=== PATIENT | female | born 1995 | race Caucasian/White ===

== ENCOUNTER → 2019-03-08 15:49 | Outpatient (BNVA) | payer BC, SELFPAY | PROVIDERS: Family Provider Family Medicine; PCP Family Medicine; Visit Provider Nurse Practitioner Psychiatric/Mental Health | DX: F33.1 Major depressive disorder, recurrent, moderate (principal); F41.9 Anxiety disorder, unspecified | CPT/HCPCS: 99214; 99215 ==

== ENCOUNTER → 2019-05-31 07:41 | Outpatient (BNVA) | payer BC, SELFPAY | PROVIDERS: Family Provider Family Medicine; PCP Family Medicine; Visit Provider Nurse Practitioner Psychiatric/Mental Health | DX: F33.1 Major depressive disorder, recurrent, moderate (principal); F41.9 Anxiety disorder, unspecified; M79.7 Fibromyalgia; G89.29 Other chronic pain | CPT/HCPCS: 99212 ==

== ENCOUNTER → 2019-08-20 07:34 | Outpatient (BNVA) | payer BC, SELFPAY | PROVIDERS: Family Provider Family Medicine; PCP Family Medicine; Visit Provider Nurse Practitioner Psychiatric/Mental Health | DX: G89.29 Other chronic pain (principal); M79.7 Fibromyalgia; F33.1 Major depressive disorder, recurrent, moderate; F41.9 Anxiety disorder, unspecified | CPT/HCPCS: 99212 ==

== ENCOUNTER → 2019-11-12 09:36 | Outpatient (BNVA) | payer BC, SELFPAY | PROVIDERS: Family Provider Family Medicine; PCP Family Medicine; Visit Provider Nurse Practitioner Psychiatric/Mental Health | DX: F33.1 Major depressive disorder, recurrent, moderate (principal); F41.9 Anxiety disorder, unspecified; G89.29 Other chronic pain; M79.7 Fibromyalgia | CPT/HCPCS: 99212 ==

== ENCOUNTER → 2019-12-24 07:45 | Outpatient (BNVA) | payer BC, SELFPAY | PROVIDERS: Family Provider Family Medicine; PCP Family Medicine; Visit Provider Nurse Practitioner Psychiatric/Mental Health | DX: F33.1 Major depressive disorder, recurrent, moderate (principal); F41.9 Anxiety disorder, unspecified; M79.7 Fibromyalgia; G89.29 Other chronic pain | CPT/HCPCS: G0463 ==

== ENCOUNTER → 2020-03-24 10:03 | Outpatient (BNVA) | payer BC, SELFPAY | PROVIDERS: Family Provider Family Medicine; PCP Family Medicine; Visit Provider Nurse Practitioner Psychiatric/Mental Health | DX: F33.1 Major depressive disorder, recurrent, moderate (principal); F41.9 Anxiety disorder, unspecified; M79.7 Fibromyalgia; G89.29 Other chronic pain | CPT/HCPCS: 99213 ==

== ENCOUNTER → 2020-06-16 08:13 | Outpatient (BNVA) | payer BC, SELFPAY | PROVIDERS: Family Provider Family Medicine; PCP Family Medicine; Visit Provider Nurse Practitioner Psychiatric/Mental Health | DX: F33.1 Major depressive disorder, recurrent, moderate (principal); F41.9 Anxiety disorder, unspecified; M79.7 Fibromyalgia; G89.29 Other chronic pain | CPT/HCPCS: 99213 ==

== ENCOUNTER 2020-06-18 10:06 | Outpatient (CLI) | payer BC, SELFPAY ==
[2020-06-18] MEDS: iohexol 300 mg/mL 50 mL Btl PO (10:21)
[2020-06-18] MEDS: iohexol 300 mg/mL 100 mL Btl IV (11:29)
--- NOTE | 2020-06-18 11:30 | CT_ITS ---
WS: [id number] CT ABDOMEN AND PELVIS WITH CONTRAST HISTORY: R10.9 - Unspecified abdominal pain TECHNIQUE: Imaging performed of the abdomen and pelvis with IV contrast. Single phase imaging of the abdomen. Coronal and sagittal reformats are submitted. All CT scans at [facility] use at least one of these dose optimization techniques: automated exposure control; mA and/or kV adjustment per patient size (includes targeted exams where dose is matched to clinical indication); or iterativ e reconstruction. IV CONTRAST: Omnipaque 300; 95 mL IV. Oral contrast: Yes. DLP: 1224.16 mGycm COMPARISON: None available. Lower thorax: Lung bases are clear. Heart is normal size. No hiatal hernia. Liver/biliary system: Normal size with no intrahepatic dilatation. Gallbladder: Status post cholecystectomy. No bile duct dilatation. Pancreas: Normal. Spleen: Normal. Adrenal glands: Normal. Right kidney: Normal. Left kidney: Normal. Aorta: Normal. Lymphadenopathy: None. Free fluid: None. GI tract: Normal appendix. No GI tract obstruction. There is mild diffuse constipation greatest in th e RIGHT and transverse colon. No diverticular disease. No mucosal thickening or edema. No small bowel dilatation. Abdominal wall: Fat containing umbilical hernia. Pelvis: Normal size uterus. Small follicle in the RIGHT ovary measures 2.3 cm. No free fluid or adeno matteo. Bones: Unremarkable. CT/CT abdomen pelvis w con* [id number] IMPRESSION: 1. No acute abdominal or pelvic abnormalities. 2. Prior cholecystectomy. 3. Normal appendix. 4. Mild diffuse constipation. 5. Small fat-containing umbilical hernia.
== END 2020-06-18 10:07 | disposition home or self-care (01) ==
PROVIDERS: PCP Family Medicine; Visit Provider Surgery
DX: R10.9 Unspecified abdominal pain (principal); Z90.49 Acquired absence of other specified parts of digestive tract; K59.00 Constipation, unspecified; K42.9 Umbilical hernia without obstruction or gangrene
CPT/HCPCS: 74177; Q9967

== ENCOUNTER → 2020-07-11 15:07 | Outpatient (BNVA) | payer BC, SELFPAY | PROVIDERS: PCP Family Medicine; Visit Provider Surgery | DX: Z01.812 Encounter for preprocedural laboratory examination (principal); Z20.822 Contact with and (suspected) exposure to COVID-19 | CPT/HCPCS: 87635 ==

== ENCOUNTER 2020-07-16 07:17 | Day surgery (SDC) | payer BC, SELFPAY ==
[2020-07-14 13:50] VITALS: BMI 36.5
--- NOTE | 2020-07-16 07:51 | ANES.PREANE2 ---
Pre-Anesthetic Assessment Pre-Anesthetic Assessment: Height/Weight: Height 1.73 m Weight 108.862 kg Preop Diagnosis: Bleeding per rectum Proposed Procedure: Operation Date: 07/16/20 08:15 Proposed Procedures p EGD [id number] r10.9 k62.5(Not Applicable) - Valdez English MD s Colonoscopy(Not Applicable) - Valdez English MD Was Beta Lisa taken within 24 hours: N/A Was Clonidine taken within 24 hours: N/A Social: Social History: No alcohol and No tobacco Exam: Pre-Anes Outpt Exam: alert, oriented x 3, clear to auscultation bilaterally and regular rate & rhythm Airway: Submandibular: WNL Cervical ROM: WNL MP: 1 History/ROS: No significant history except as noted Pulmonary: Pulmonary: None reported CV/HEM: CV/HEM: None reported : : None reported Hepatic: Hepatic: None reported GI: GI: GERD and Hiatus hernia Metabolic: Metabolic: None reported Musc/skel: Musc/skel: Fibromyalgia Neuropsych: Neuropsych: Anxiety and Depression Comments: migraine Anesthetic Plan: ASA status: 2 Anesthesia: Anesthesia Evaluation and MAC Risk of > 500 ml blood loss (7ml/kg in children): No PFSH Anesthesia PFSH: Medical History Chronic pain Fibromyalgia Family History Mother CAD (coronary artery disease) Hypertension Other Cancer Diabetes Denies family history of Stroke Social History Smoking and tobacco status: never smoked Alcohol intake: never Lives independently: Yes Household members: spouse Female Reproductive History: Date of last menstrual period: 05/17/20 Data Anesthesia Cardiac Studies: No Data to Display
[2020-07-16 07:55] VITALS: BP 118/76; PULSE 80; RESP 18; TEMP 36.1; O2SAT 95
[2020-07-16] MEDS: sodium chloride 0.9% 1,000 ML 30 ML IV (08:08)
--- NOTE | 2020-07-16 08:27 | P.HP_ITS ---
Same Day Surgery H&P Indication for Procedure/HPI DATE OF PROCEDURE: July 16, 2020 CHIEF COMPLAINT/INDICATIONFOR SURGICAL PROCEDURE: Bleeding per rectum PREOP DIAGNOSIS: Bleeding per rectum PLANNED PROCEDRUE: Operation Date: 07/16/20 08:15 Proposed Procedures p EGD [id number] r10.9 k62.5(Not Applicable) - Valdez English MD s Colonoscopy(Not Applicable) - Valdez English MD History of present illness: This is a pleasant 24 years old female patient presents to my office with history of abdominal pain mostly sharp has been in the center of her abdomen and describes it as well in the form of stabbing. Nothing seems to make it better or worse. Patient reports that she has been having blood in stool for the past couple of weeks and she denies history of colon cancer or inflammatory bowel disease. Patient undergone diagnostic EGD by me back in 2016 and was found to have gastritis and hiatal hernia. Interim history 07/16/2020 Patient comes today for diagnostic EGD and colonoscopy. ROS All systems have been reviewed negative except as per the above or per problem l ist. Medications/Allergies* Home Medications Medication Instructions Recorded Confirmed Type gabapentin 300 mg capsule 300 mg PO TID 08/17/19 07/16/20 History tizanidine 2 mg capsule 2 mg PO TID PRN 08/17/19 07/16/20 History omeprazole 40 mg capsule,delayed 40 mg PO DAILY 06/12/20 07/16/20 History release naproxen 500 mg PO BID 07/14/20 07/14/20 History Allergies/Adverse Reactions Allergy/AdvReac Type Severity Reaction Status Date / Time No Known Allergies Allergy Verified 07/14/20 13:47 Current Medications: Generic Name Dose Route Start Last Admin Trade Name Freq PRN Reason Stop Dose Admin Sodium Chloride 1,000 mls @ 30 mls/hr 07/16/20 07:45 07/16/20 08:08 Sodium Chloride 0.9% IV 07/17/20 07:44 30 mls/hr .Q24H CLAUDY Administration Pertinent History/Comorbid Conditions* Medical History (Updated 06/09/20 @ 15:52 by Valdez English MD) Chronic pain Fibromyalgia Family History (Updated 06/09/20 @ 15:01 by Serina Falcon) Diabetes CAD (coronary artery disease) Mother Cancer Hypertension Mother Denies family history of Stroke Social History Smoking and tobacco status: never smoked Alcohol intake: never Lives independently: Yes Household members: spouse Pertinent Exam Findings alert, oriented x 3, clear to auscultation bilaterally, regular rate & rhythm and procedure specific exam findings (Abdominal examination nontender nondistended soft.) CT scan of the abdomen pelvis 1. No acute abdominal or pelvic abnormalities. 2. Prior cholecystectomy. 3. Normal appendix. 4. Mild diffuse constipation. 5. Small fat-containing umbilical hernia. Recommendations Surgery/Procedure today (Diagnostic EGD and colonoscopy) Other Plans: Plan of care; After thorough history and physical examination and reviewing the chart and images of the CT scan of the abdomen pelvis with my presented potation, plan to perform a diagnostic esophagogastroduodenoscopy and diagnostic colonoscopy with possible biopsy and possible polypectomy. I discussed with the patient in detail the risks,benefits,alternatives and indications.The risk of aspiration, bleeding, soft tissue injury, perforation of the stomach/esophagus/colon and other potential concomitant complications were explained to the patient in details also the potential need for Thoracotomy and or Laproscoy/Laparotomy to repair any related complications including but not limited to colectomy and or Closotomy. The patient understood this well and did agree to proceed. Rationale was carefully and clearly discussed with the patient.Appropriate informed consent have been reviewed and signed Verbal and written Instructions were given to the patient for colonoscopy prep Coding Level of Care Code Acute Low Emission Automobile Designer for Jad Dahl
[2020-07-16 08:59] VITALS: BP 110/68; PULSE 72; RESP 18; TEMP 36.1; O2SAT 93
[2020-07-16 09:10] VITALS: BP 111/64; PULSE 71; RESP 18; O2SAT 96
[2020-07-16 09:36] LABS: OR HCG Qualitative Urine Negative (Negative)
--- NOTE | 2020-07-16 13:29 | ANE.PACU2 ---
Inpatient post-anesthesia follow up: Airway intact: Yes Vital signs: Temperature 97 F Pulse Rate 71 Respiratory Rate 18 Blood Pressure 111/64 Pulse Oximetry 96 Oxygen Delivery Me thod Room Air Oxygen Flow Rate Fraction of Inspir ed Oxygen Hydration adequate: Yes Nausea and vomiting: No Pain level: 1 Mental status: Baseline
[2020-07-17 06:19] LABS: H. Pylori / CLO Test Negative
== END 2020-07-16 09:19 | disposition home or self-care (01) ==
PROVIDERS: PCP Family Medicine; Visit Provider Surgery
PROC: 0DJ08ZZ Inspection of Upper Intestinal Tract, Via Natural or Artificial Opening Endoscopic (ICD-10-PCS; CPT 43235; principal; 2020-07-16 08:15)
PROC: 0DJD8ZZ Inspection of Lower Intestinal Tract, Via Natural or Artificial Opening Endoscopic (ICD-10-PCS; CPT 45378; 2020-07-16 08:15)
DX: K62.5 Hemorrhage of anus and rectum (principal); K21.9 Gastro-esophageal reflux disease without esophagitis; K29.70 Gastritis, unspecified, without bleeding; G89.29 Other chronic pain; M79.7 Fibromyalgia; Z82.49 Family history of ischemic heart disease and other diseases of the circulatory system
CPT/HCPCS: 43239; 45378; 81025; 84703; 87077; 96360; J2704; J7030

== ENCOUNTER 2021-03-10 13:32 | Emergency (ER) | payer BC, SELFPAY ==
[2021-03-10 13:47] VITALS: BP 150/95; PULSE 74; RESP 15; TEMP 36.7; O2SAT 96; BMI 36.5
--- NOTE | 2021-03-10 15:02 | XRR_ITS ---
PROCEDURE INFORMATION: Exam: XR Abdomen Exam date and time: 03/10/2021 3:02 PM Age: 25 years old Clinical indication: Abdominal pain; Localized; Right; Prior surgery; Surgery type: Gb; Additional info: Right sided abd pain TECHNIQUE: Imaging protocol: XR of the abdomen. Views: Frontal supine view of the abdomen. 1 View. COMPARISON: CT abdomen pelvis w con* [id number] 06/18/2020 11:27 AM FINDINGS: Gastrointestinal tract: Moderate constipation without bowel dilation to indicate obstruction. Bones/joints: Unremarkable. XR/XR KUB portable [id number] IMPRESSION: Moderate constipation without bowel dilation to indicate obstruction.
--- NOTE | 2021-03-10 15:03 | W.ED.ABDPA2 ---
Documented by User: ARASH Vizcarra 03/11/21 07:10 HPI - Abdominal Pain General: Chief Complaint: Abdominal Pain Stated Complaint: R ABD PAIN, NAUSEA Time Seen by Provider: 03/10/21 14:59 History of Present Illness: HPI narrative: Patient complains about abdominal pain right side across the middle. Is gone on for 2 weeks and hurt every day. Patient said her bowels are working good. Patient denies any nausea or vomiting diarrhea or dysuria. Has had gallbladder out. Denies any other health problems. MD elicited complaint: abdominal pain Onset (ago): week(s) Pain Consistency: constant Location: RUQ and RLQ Severity: mild Quality: fullness Exacerbating factors: nothing Relieving factors: nothing Associated Symptoms: Reports no associated symptoms; Denies chills, fever(s), nausea and vomiting Related Data: Date of Last Menstrual Period: 03/02/21 Review of Systems Const: Denies: fever(s), chills or body aches Eyes: Denies: change in vision or blurry vision ENMT: Denies: throat pain or nasal congestion Card: Denies: chest pain or dyspnea on exertion Resp: Denies: dyspnea, productive cough or non-productive cough GI: Reports: abdominal pain; Denies: nausea or vomiting Musc: Denies: extremity pain Skin/Breast: Denies: rash Neuro: Denies: headache(s) Psych: Denies: anxiety or depression Caleb/Lymph: Denies: easy bruising PFS ED PFSH: Medical History (Updated 03/10/21 @ 15:46 by ARASH Vizcarra) Bleeding per rectum Chronic pain Fibromyalgia Gastritis GERD (gastroesophageal reflux disease) Psychiatric care Family History Mother CAD (coronary artery disease) Hypertension Other Cancer Diabetes Denies family history of Stroke Social History Smoking and tobacco status: never smoked Alcohol intake: never Lives independently: Yes Household members: spouse Female Reproductive History: Date of last menstrual period: 03/02/21 Physical Exam Const: COMMON NORMALS: no acute distress, average body habitus and patient oriented x3 HENMT: COMMON NORMALS: normocephalic HEAD & SCALP: normal to inspection and normocephalic FACE & SINUS: normal facial exam Eye: COMMON NORMALS: conjunctivae normal GENERAL EYE: appearance normal, both eyes and all related structures CONJUNCTIVA: Yes conjunctivae normal Neck/C-Spine: COMMON NORMALS: no JVD Chest: COMMONS NORMALS: normal inspection of the chest Resp: COMMON NORMALS: normal respiratory effort and clear to auscultation bilaterally AUSCULTATION: clear to auscultation bilaterally Cardio: COMMON NORMALS: no JVD, regular rate and regular rhythm RATE: regular rate RHYTHM: regular rhythm GI: COMMON NORMALS: Normal to inspection, nondistended, normoactive bowel sounds present INSPECTION: Yes normal to inspection AUSCULTATION: Yes Hypoactive bowel sounds present PALPATION: Yes Tenderness to palpation present (GI) (Mild right side of her abdomen) Extremity: COMMON NORMALS: normal to inspection and full ROM Neuro: COMMON NORMALS: patient oriented x3 Course Vital Signs: Vital signs: Vital Signs Temperature 98.1 F 03/10/21 13:47 Pulse Rate 69 03/10/21 15:50 Respiratory Rate 16 03/10/21 15:50 Blood Pressure 128/85 03/10/21 15:50 Pulse Oximetry 97 03/10/21 15:50 MDM - Abdominal Pain MDM Narrative: Medical decision making narrative: Patient presents with abdominal discomfort going on for better part of 2 weeks. Patient states pain is not bad, hurts across the right side of abdomen and goes up a little bit. Patient denies any nausea or vomiting diarrhea. Patient states her bowels have been working good. Laboratory studies negative for any concerning findings, KUB does show constipation. Patient diagnosed constipation asked to increase fiber in her diet and also water and get plenty of exercise and to follow-up with primary care return here for worsening symptoms. Lab Data: Labs: Lab Results 03/10/21 03/10/21 03/10/21 15:49 15:49 16:00 WBC 11.7 10^3/uL H 10 ^3/uL (4.0-10.0) RBC 4.82 10^6/uL 10^6 /uL (4.1-5.3) Hgb 13.3 g/dL g/dL (11.5-15.3) Hct 42.4 % % (37.0-47.0) MCV 88.0 fl fl (81-99) MCH 27.6 pg L pg (28.0-34.0) MCHC 31.4 g/dL g/dL (30.0-36.0) RDW 12.8 % % (12.1-15.1) Plt Count 348 10^3/cmm 10^3 /cmm (130-400) MPV 9.7 fL fL (7.4-10.4) Neut % (Auto) 68.6 % % Lymph % (Auto) 25.1 % % [place] % (Auto) 5.0 % % Eos % (Auto) 0.4 % % Baso % (Auto) 0.5 % % Neut # (Auto) 8.01 10^3/uL H 10 ^3/uL (1.8-7.7) Lymph # (Auto) 2.9 10^3/uL 10^3/ uL (0.8-4.8) [place] # (Auto) 0.6 10^3/uL 10^3/ uL (0.2-0.9) Eos # (Auto) 0.1 10^3/uL 10^3/ uL (0.0-0.8) Baso # (Auto) 0.1 10^3/uL 10^3/ uL (0.0-0.1) Nucleated RBC % (a uto) 0 % % Nucleated RBCs # 0.0 /100WBC /100W BC Sodium 138 mmol/L mmol/L (136-145) Potassium 3.9 mmol/L mmol/L (3.5-5.1) Chloride 101 mmol/L mmol/L (98-107) Carbon Dioxide 25 mmol/L mmol/L (22-29) Anion Gap 15.9 (5-19) BUN 12 mg/dL mg/dL (6-20) Creatinine 0.8 mg/dL mg/dL (0.5-0.9) GFR Calculation 86.0 mL/min L mL/ min (90-130) Glucose 83 mg/dL mg/dL (65-115) Calculated Osmolal ity 285 mOsm/kg mOsm/ kg (285-295) Calcium 9.3 mg/dL mg/dL (8.5-10.5) Total Bilirubin 0.3 mg/dL mg/dL (0.15-1.2) AST 19 U/L U/L (0-32) ALT 16 U/L U/L (0-33) Alkaline Phosphata se 80 IU/L IU/L (35-105) Total Protein 7.6 g/dL g/dL (6.6-8.7) Albumin 4.6 g/dL g/dL (3.5-5.2) Globulin 3.0 g/dL g/dL (1.3-4.6) Lipase 27 U/L U/L (13-60) HCG, Qual Negative (Negative) Discharge Plan Discharge Patient Disposition: Home Clinical Impression: Constipation Qualifiers: Constipation type: slow transit constipation Qualified Code(s): K59.01 - Slow transit constipation Condition: Stable Prescriptions: New magnesium citrate Solution 296 ml PO DAILY PRN (Reason: constipation) 3 Days Qty: 296 RF: 0 Colace 100 mg capsule 100 mg PO BID Qty: 20 RF: 0 No Action gabapentin 300 mg capsule 300 mg PO TID RF: 0 omeprazole 40 mg capsule,delayed release(DR/EC) 40 mg PO DAILY RF: 0 sertraline 100 mg tablet 200 mg PO DAILY Qty: 60 RF: 4 trazodone 150 mg tablet 150 mg PO DAILY RF: 0 cephalexin 500 mg capsule 500 mg PO TID 7 Days Qty: 21 RF: 0 tizanidine 2 mg capsule 2 mg PO TID PRN (Reason: Pain) RF: 0 trazodone 150 mg tablet 150 mg PO .qhs PRN (Reason: insomnia) Qty: 60 RF: 1 Discharge Orders: Discharge ED (Routine); Ordered 03/10/21 Ordered By: Marshall Tineo Referrals: Macy Saucedo MD [Primary Care Provider] - Discharge Diet: As Directed Discharge Activity: Resume usual activity Patient Instructions: Constipation (ED), High Fiber Diet (ED), Fleet Enema (ED) Activity Restrictions/Additional Instructions: Follow-up with medical provider as directed. Take medications as prescribed. Return to the ER or your medical provider if condition worsens. Please read and understand discharge instructions. If any questions ask please. Coding Level of Care Code ED Transportation Manager for Chg Fwd Exam Comprehensive Documented by User: Pedrito Sharp DO 03/11/21 07:13 HPI - Abdominal Pain General: Chief Complaint: Abdominal Pain Stated Complaint: R ABD PAIN, NAUSEA Time Seen by Provider: 03/10/21 14:59 PFSH ED PFSH: Medical History (Updated 03/10/21 @ 15:46 by ARASH Vizcarra) Bleeding per rectum Chronic pain Fibromyalgia Gastritis GERD (gastroesophageal reflux disease) Psychiatric care Family History Mother CAD (coronary artery disease) Hypertension Other Cancer Diabetes Denies family history of Stroke Social History Smoking and tobacco status: never smoked Alcohol intake: never Lives independently: Yes Household members: spouse Course Vital Signs: Vital signs: Vital Signs Temperature 98.1 F 03/10/21 13:47 Pulse Rate 69 03/10/21 15:50 Respiratory Rate 16 03/10/21 15:50 Blood Pressure 128/85 03/10/21 15:50 Pulse Oximetry 97 03/10/21 15:50 MDM - Abdominal Pain MDM Narrative: Medical decision making narrative: Chart reviewed and patient discussed with midlevel. Agree with assessment and plan. Lab Data: Labs: Lab Results 03/10/21 03/10/21 03/10/21 15:49 15:49 16:00 WBC 11.7 10^3/uL H 10 ^3/uL (4.0-10.0) RBC 4.82 10^6/uL 10^6 /uL (4.1-5.3) Hgb 13.3 g/dL g/dL (11.5-15.3) Hct 42.4 % % (37.0-47.0) MCV 88.0 fl fl (81-99) MCH 27.6 pg L pg (28.0-34.0) MCHC 31.4 g/dL g/dL (30.0-36.0) RDW 12.8 % % (12.1-15.1) Plt Count 348 10^3/cmm 10^3 /cmm (130-400) MPV 9.7 fL fL (7.4-10.4) Neut % (Auto) 68.6 % % Lymph % (Auto) 25.1 % % [place] % (Auto) 5.0 % % Eos % (Auto) 0.4 % % Baso % (Auto) 0.5 % % Neut # (Auto) 8.01 10^3/uL H 10 ^3/uL (1.8-7.7) Lymph # (Auto) 2.9 10^3/uL 10^3/ uL (0.8-4.8) [place] # (Auto) 0.6 10^3/uL 10^3/ uL (0.2-0.9) Eos # (Auto) 0.1 10^3/uL 10^3/ uL (0.0-0.8) Baso # (Auto) 0.1 10^3/uL 10^3/ uL (0.0-0.1) Nucleated RBC % (a uto) 0 % % Nucleated RBCs # 0.0 /100WBC /100W BC Sodium 138 mmol/L mmol/L (136-145) Potassium 3.9 mmol/L mmol/L (3.5-5.1) Chloride 101 mmol/L mmol/L (98-107) Carbon Dioxide 25 mmol/L mmol/L (22-29) Anion Gap 15.9 (5-19) BUN 12 mg/dL mg/dL (6-20) Creatinine 0.8 mg/dL mg/dL (0.5-0.9) GFR Calculation 86.0 mL/min L mL/ min (90-130) Glucose 83 mg/dL mg/dL (65-115) Calculated Osmolal ity 285 mOsm/kg mOsm/ kg (285-295) Calcium 9.3 mg/dL mg/dL (8.5-10.5) Total Bilirubin 0.3 mg/dL mg/dL (0.15-1.2) AST 19 U/L U/L (0-32) ALT 16 U/L U/L (0-33) Alkaline Phosphata se 80 IU/L IU/L (35-105) Total Protein 7.6 g/dL g/dL (6.6-8.7) Albumin 4.6 g/dL g/dL (3.5-5.2) Globulin 3.0 g/dL g/dL (1.3-4.6) Lipase 27 U/L U/L (13-60) HCG, Qual Negative (Negative) Discharge Plan Discharge Patient Disposition: Home Clinical Impression: Constipation Qualifiers: Constipation type: slow transit constipation Qualified Code(s): K59.01 - Slow transit constipation Condition: Stable Prescriptions: New magnesium citrate Solution 296 ml PO DAILY PRN (Reason: constipation) 3 Days Qty: 296 RF: 0 Colace 100 mg capsule 100 mg PO BID Qty: 20 RF: 0 No Action gabapentin 300 mg capsule 300 mg PO TID RF: 0 omeprazole 40 mg capsule,delayed release(DR/EC) 40 mg PO DAILY RF: 0 sertraline 100 mg tablet 200 mg PO DAILY Qty: 60 RF: 4 trazodone 150 mg tablet 150 mg PO DAILY RF: 0 cephalexin 500 mg capsule 500 mg PO TID 7 Days Qty: 21 RF: 0 tizanidine 2 mg capsule 2 mg PO TID PRN (Reason: Pain) RF: 0 trazodone 150 mg tablet 150 mg PO .qhs PRN (Reason: insomnia) Qty: 60 RF: 1 Discharge Orders: Discharge ED (Routine); Ordered 03/10/21 Ordered By: Marshall Tineo Referrals: Macy Saucedo MD [Primary Care Provider] - Discharge Diet: As Directed Discharge Activity: Resume usual activity Patient Instructions: Constipation (ED), High Fiber Diet (ED), Fleet Enema (ED) Activity Restrictions/Additional Instructions: Follow-up with medical provider as directed. Take medications as prescribed. Return to the ER or your medical provider if condition worsens. Please read and understand discharge instructions. If any questions ask please. Coding Level of Care Code ED Transportation Manager for Chg Fwd Exam Comprehensive
[2021-03-10 15:50] VITALS: BP 128/85; PULSE 69; RESP 16; O2SAT 97
[2021-03-10 16:05] LABS: Basophils # 0.1 10^3/uL (0.0-0.1); Basophils % 0.5 %; Eosinophils # 0.1 10^3/uL (0.0-0.8); Eosinophils % 0.4 %; Hematocrit 42.4 % (37.0-47.0); Hemoglobin 13.3 g/dL (11.5-15.3); Lymphocytes # 2.9 10^3/uL (0.8-4.8); Lymphocytes % 25.1 %; Mean Corpuscular HGB Conc 31.4 g/dL (30.0-36.0); Mean Corpuscular Hemoglobin 27.6 pg (28.0-34.0); Mean Platelet Volume 9.7 fL (7.4-10.4); Monocytes # 0.6 10^3/uL (0.2-0.9); Neutrophils # 8.01 10^3/uL (1.8-7.7); Neutrophils % 68.6 %; Nucleated Red Blood Cells % 0 %; Platelet Count 348 10^3/cmm (130-400); Red Blood Count 4.82 10^6/uL (4.1-5.3); Red Cell Distribution Width 12.8 % (12.1-15.1); White Blood Count 11.7 10^3/uL (4.0-10.0)
[2021-03-10 16:08] LABS: HCG Qualitative Urine. Negative (Negative)
[2021-03-10 16:37] LABS: Alanine Aminotransferase 16 U/L (0-33); Albumin Level 4.6 g/dL (3.5-5.2); Alkaline Phosphatase 80 IU/L (35-105); Aspartate Amino Transferase 19 U/L (0-32); Blood Urea Nitrogen 12 mg/dL (6-20); Calcium 9.3 mg/dL (8.5-10.5); Carbon Dioxide 25 mmol/L (22-29); Chloride 101 mmol/L (98-107); Glucose 83 mg/dL (65-115); Lipase 27 U/L (13-60); Osmolality Calculated 285 mOsm/kg (285-295); Sodium 138 mmol/L (136-145); Total Bilirubin 0.3 mg/dL (0.15-1.2); Total Protein 7.6 g/dL (6.6-8.7)
[2021-03-10 16:39] LABS: Anion Gap 15.9 (5-19)
[2021-03-10 16:40] LABS: Potassium 3.9 mmol/L (3.5-5.1)
== END 2021-03-10 16:32 | disposition home or self-care (01) ==
PROVIDERS: Emergency Provider Nurse Practitioner Family; PCP Family Medicine
DX: K59.01 Slow transit constipation (principal)
CPT/HCPCS: 74018; 80053; 81025; 83690; 85025; 99283

== ENCOUNTER 2021-12-28 14:40 | Outpatient (CLI) | payer BC, SELFPAY ==
[2021-12-28 15:53] LABS: Estmated Average Glucose 97
[2021-12-28 16:10] LABS: Thyroid Stimulating Hormone 1.35 uIU/mL (0.27-4.20)
[2021-12-29 13:37] LABS: Insulin ( Reference Lab Test) 42.5 uIU/mL
== END 2021-12-28 14:41 | disposition home or self-care (01) ==
LOC: LAB 14:42
PROVIDERS: PCP Family Medicine; Visit Provider Obstetrics & Gynecology
DX: N92.6 Irregular menstruation, unspecified (principal)
CPT/HCPCS: 36415; 83036; 83525; 84443

== ENCOUNTER 2023-04-21 10:12 | Emergency (ER) | payer BC, SELFPAY ==
--- NOTE | 2023-04-21 10:19 | CT_ITS ---
WS: [id number] CT HEAD TECHNIQUE: Noncontrast CT of the head obtained from the skullbase to the vertex. CLINICAL INFORMATION: Headache right vision loss COMPARISON: 2019 DLP: 887.[address] scans at [facility] use at least one of these dose optimization techniques: automated e xposure control; mA and/or kV adjustment per patient size (includes targeted exams where dose is matc hed to clinical indication); or iterative reconstruction. FINDINGS: No evidence of intracranial hemorrhage or mass effect. Ventricular system and basal cisterns are reed nt. No extra-axial fluid collections. No evidence of mass or mass effect. Normal pablo-white different iation. Paranasal sinuses and mastoid air cells are well aerated. .Normal visualized soft tissues. IMPRESSION: 1. No evidence of intracranial hemorrhage or mass effect. 2. No acute intracranial findings.
[2023-04-21 10:21] VITALS: BMI 31.6
[2023-04-21 10:23] VITALS: BP 124/74; PULSE 70; RESP 16; TEMP 36.3; O2SAT 96
--- NOTE | 2023-04-21 10:28 | ECG_ITS ---
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 Measurements Intervals [place] Rate: 72 P: 36 [place]: 138 QRS: 39 QRSD: 97 T: 33 QT: 389 QTc: 426 Interpretive Statements SINUS RHYTHM Compared to ECG 08/07/2016 01:14:05 Sinus arrhythmia no longer present Electronically Signed On 04-21-2023 10:54:16 CONSTRUCTION CARPENTERS HELPER by Pam Mccray M.D. [email or web address]mananderson regional medical centerPrevalent Networksthe metrohealth systemCoreValue [id number]
[2023-04-21] MEDS: sodium chloride 0.9% 1,000 ML 999 ML IV (10:48)
[2023-04-21 10:53] VITALS: BP 124/88; PULSE 85; O2SAT 99
--- NOTE | 2023-04-21 10:56 | ED_ITS ---
HPI - Eye Problem 2 General: Chief complaint: Eye Problems Stated complaint: Headache, unable to see out of right eye Time Seen by Provider: 04/21/23 10:18 History of Present Illness: Patient presents to the ER today with complaints of sharp stabbing eye pain that radiated to her head causing a migraine. This been going on for several days. Patient states she has a history of complex migraines usually starts as a headache that goes into vision changes over her right eye. Patient states this way was the opposite way around she started having some vision issues and it radiated to her right eye. Patient does see a neurologist in [place] for her headaches. Patient is on Topamax 25 mg twice daily and also atogepant 10 mg daily, duloxetine 40 mg daily. Patient says when she wakes up in the morning she feels a hard to open her right eye sometimes. Patient then feels pressure and sharp stabbing in her eye with decreased vision in the way that things are more blurry and black spots. Patient says it does get better throughout the day but never goes back to normal. Patient denies any coughs colds fevers chills nausea vomiting diarrhea or other overt signs of sickness. Patient does states she has some tingling of her right cheek but this is consistent with her normal migraine. Review of Systems 2 General: Reports: 10 or more systems reviewed and unremarkable except in HPI and below PFSH ED 2 PFSH: Medical History GERD (gastroesophageal reflux disease) Gastritis Bleeding per rectum Fibromyalgia Chronic pain Surgical History History of cholecystectomy Family History Mother CAD (coronary artery disease) Hypertension Heart disease Other Cancer Diabetes Denies family history of Colon cancer Ovarian cancer Hypercholesteremia Breast cancer Uterine cancer Thyroid disease Stroke Social History Smoking and tobacco/nicotine status: never used tobacco/nicotine Substance/Drug Use: never Physical Exam 2 Const: COMMON NORMALS: no acute distress, average body habitus, patient oriented x3, no limitations, healthy appearing, alert and well nourished HENMT: COMMON NORMALS: normocephalic, atraumatic, hearing grossly normal bilaterally, external ears normal, EAC's normal, Normal external nose present, moist oral mucous membranes and oropharynx normal HEAD & SCALP: normocephalic and atraumatic NOSE: Normal external nose present EXTERNAL EAR: Yes external ears normal EXTERNAL AUDITORY CANAL: EAC's normal Eye: COMMON NORMALS: Equal, round and reactive pupils present, EOMs intact bilaterally, conjunctivae normal and no scleral icterus CONJUNCTIVA: Yes conjunctivae normal PUPIL: Yes Equal, round and reactive pupils present Neck/C-Spine: COMMON NORMALS: full ROM, no lymphadenopathy, supple, no meningeal signs, no JVD and Thyroid normal THYROID: Thyroid normal Chest: COMMONS NORMALS: normal inspection of the chest and normal palpation of entire chest wall Resp: COMMON NORMALS: normal respiratory effort, No retractions, No use of accessory muscles and clear to auscultation bilaterally AUSCULTATION: clear to auscultation bilaterally Cardio: COMMON NORMALS: no JVD, regular rate, regular rhythm, S1 normal heart sound present, S2 normal heart sound present, No gallops present (Cardio), No clicks present (Cardio), No murmurs present (Cardio) and No rub (Cardio) R ATE: regular rate RHYTHM: regular rhythm HEART SOUNDS: S1 normal heart sound present and S2 normal heart sound present GI: COMMON NORMALS: Normal to inspection, nondistended, normoactive bowel sounds present, Soft to palpation, non-tender, No hepatosplenomegaly present and no masses PALPATION: Yes Soft to palpation and Yes No hepatosplenomegaly present Neuro: COMMON NORMALS: patient oriented x3 SENSORIUM/ORIENTATION: Yes alert MENINGEAL SIGNS: Yes no meningeal signs Course 2 Vital Signs: Vital signs: Vital Signs Temperature 97.3 F L 04/21/23 10:23 Pulse Rate 69 04/21/23 12:30 Respiratory Rate 16 04/21/23 10:23 Blood Pressure 109/70 04/21/23 12:30 Pulse Oximetry 100 04/21/23 12:30 Oxygen Delivery Me thod Room Air 04/21/23 12:30 MDM - Eye Problem Medical Decision Making Patient had lab work included CBC CMP all of which was essentially benign, patient had a head CT that showed no acute changes. Patient was given valproic acid 500 mg IV, 1 L normal saline, Reglan 10 mg IV, Toradol 30 mg IV, upon reevaluation patient said the pain is much improved. Patient was instructed of the findings of the lab work and CT results. Patient was instructed to follow- up with her neurologist and photograph enlarger for further evaluation and treatment. Differential Diagnosis Unlikely corneal abrasion, conjunctivitis, acute iritis, hyphema, periorbital cellulitis, subconjunctival hemorrhage, glaucoma, corneal ulcer or ruptured globe Medical Records I reviewed the patient's medical records. Lab Data I reviewed the patient's lab results. 04/21/23 10:51 04/21/23 10:51 Laboratory Results WBC 8.55 10^3/uL (3.29-11.43) 04/21/23 10:51 RBC 4.96 10^6/uL (3.85-5.65) 04/21/23 10:51 Hgb 14.00 g/dL (11.27-16.99) 04/21/23 10:51 Hct 44.1 % (36-47) 04/21/23 10:51 MCV 88.9 fl (85-98) 04/21/23 10:51 MCH 28.2 pg (27-33) 04/21/23 10:51 MCHC 31.7 g/dL (30-55) 04/21/23 10:51 RDW 13.1 % (12.1-15.1) 04/21/23 10:51 Plt Count 329 10^3/cmm (157-399) 04/21/23 10:51 MPV 9.7 fL (7.4-10.4) 04/21/23 10:51 Neut % (Auto) 59.6 % 04/21/23 10:51 Lymph % (Auto) 33.3 % 04/21/23 10:51 [place] % (Auto) 5.4 % 04/21/23 10:51 Eos % (Auto) 0.7 % 04/21/23 10:51 Baso % (Auto) 0.8 % 04/21/23 10:51 Neut # (Auto) 5.09 10^3/uL (1.8-7.7) 04/21/23 10:51 Lymph # (Auto) 2.9 10^3/uL (0.8-4.8) 04/21/23 10:51 [place] # (Auto) 0.5 10^3/uL (0.2-0.9) 04/21/23 10:51 Eos # (Auto) 0.1 10^3/uL (0.0-0.8) 04/21/23 10:51 Baso # (Auto) 0.1 10^3/uL (0.0-0.1) 04/21/23 10:51 Nucleated RBC % (auto) 0 % 04/21/23 10:51 Nucleated RBCs # 0.0 /100WBC 04/21/23 10:51 Sodium 139 mmol/L (136-145) 04/21/23 10:51 Potassium 4.5 mmol/L (3.5-5.1) 04/21/23 10:51 Chloride 108 mmol/L (98-107) H 04/21/23 10:51 Carbon Dioxide 24 mmol/L (22-29) 04/21/23 10:51 Anion Gap 11.5 (5-19) 04/21/23 10:51 BUN 8 mg/dL (6-20) 04/21/23 10:51 Creatinine 0.8 mg/dL (0.5-0.9) 04/21/23 10:51 GFR Calculation 84.8 mL/min (90-130) L 04/21/23 10:51 Glucose 99 mg/dL (65-115) 04/21/23 10:51 Calculated Osmolality 286 mOsm/kg (285-295) 04/21/23 10:51 Calcium 9.0 mg/dL (8.5-10.5) 04/21/23 10:51 Total Bilirubin 0.3 mg/dL (0.15-1.2) 04/21/23 10:51 AST 16 U/L (0-32) 04/21/23 10:51 ALT 17 U/L (0-33) 04/21/23 10:51 Alkaline Phosphatase 80 U/L (35-105) 04/21/23 10:51 Total Protein 7.3 g/dL (6.6-8.7) 04/21/23 10:51 Albumin 4.0 g/dL (3.5-5.2) 04/21/23 10:51 Globulin 3.3 g/dL (1.3-4.6) 04/21/23 10:51 All radiology interpretation(s) finalized by discharge Discharge Plan Discharge Patient Disposition: Home Clinical Impression: Vision changes Migraine Qualifiers: Migraine type: unspecified Status migrainosus presence: without status migrainosus Intractability: not intractable Qualified Code(s): G43.909 - Migraine, unspecified, not intractable, without status migrainosus Condition: Stable Prescriptions: No Action omeprazole 40 mg capsule,delayed release(DR/EC) 40 mg PO DAILY tizanidine 2 mg capsule 2 mg PO TID PRN (Reason: Pain) topiramate [Topamax] 25 mg tablet 25 mg PO BID neratinib 40 mg tablet 240 mg PO DAILY Rx Instructions: must administer with a meal/food duloxetine 40 mg capsule, delayed rel sprinkle 40 mg PO DAILY amoxicillin 875 mg tablet 875 mg PO BID 7 Days Qty: 14 0RF albuterol sulfate [Ventolin HFA] 90 mcg/actuation HFA aerosol inhaler 1 - 2 puff inhalation Q6H PRN (Reason: shortness of breath or wheezing) Qty: 8.5 0RF Qulipta 10 mg tablet 10 mg PO DAILY Discharge Orders: Discharge ED (Routine); Ordered 04/21/23 Ordered By: Roger Lopez Referrals: Macy Saucedo MD [Primary Care Provider] - 1 week Patient Instructions: Ocular Migraine (ED), Vision Problems Activity Restrictions/Additional Instructions: Please follow-up within next week with your neurologist and also try to get appointment with an photograph enlarger for further definitive eye exam. If your pain worsens or changes or your vision worsens or changes please feel free to return to the ER. Coding Level of Care Code ED [employer] Staff for Jad Dahl
[2023-04-21] MEDS: metoclopramide 5 mg/mL SDV 2 mL 10 MG IVP (10:58)
[2023-04-21] MEDS: ketorolac 30 mg/mL INJ IVP (10:58)
[2023-04-21 11:01] LABS: Basophils # 0.1 10^3/uL (0.0-0.1); Basophils % 0.8 %; Eosinophils # 0.1 10^3/uL (0.0-0.8); Eosinophils % 0.7 %; Hematocrit 44.1 % (36-47); Lymphocytes # 2.9 10^3/uL (0.8-4.8); Lymphocytes % 33.3 %; Mean Corpuscular HGB Conc 31.7 g/dL (30-55); Mean Corpuscular Hemoglobin 28.2 pg (27-33); Mean Corpuscular Volume 88.9 fl (85-98); Mean Platelet Volume 9.7 fL (7.4-10.4); Monocytes # 0.5 10^3/uL (0.2-0.9); Monocytes % 5.4 %; Neutrophils # 5.09 10^3/uL (1.8-7.7); Neutrophils % 59.6 %; Nucleated Red Blood Cells % 0 %; Platelet Count 329 10^3/cmm (157-399); Red Blood Count 4.96 10^6/uL (3.85-5.65); Red Cell Distribution Width 13.1 % (12.1-15.1); White Blood Count 8.55 10^3/uL (3.29-11.43)
[2023-04-21 11:19] LABS: Alanine Aminotransferase 17 U/L (0-33); Alkaline Phosphatase 80 U/L (35-105); Anion Gap 11.5 (5-19); Aspartate Amino Transferase 16 U/L (0-32); Blood Urea Nitrogen 8 mg/dL (6-20); Carbon Dioxide 24 mmol/L (22-29); Chloride 108 mmol/L (98-107); Globulin 3.3 g/dL (1.3-4.6); Glomerular Filtration Rate 84.8 mL/min (90-130); Glucose 99 mg/dL (65-115); Osmolality Calculated 286 mOsm/kg (285-295); Potassium 4.5 mmol/L (3.5-5.1); Sodium 139 mmol/L (136-145); Total Bilirubin 0.3 mg/dL (0.15-1.2); Total Protein 7.3 g/dL (6.6-8.7)
[2023-04-21 11:23] VITALS: BP 111/61; PULSE 72; O2SAT 99
[2023-04-21] MEDS: valproic acid inj 500 MG in sodium chloride 0.9% 50 ML 55 MG IV (11:29)
[2023-04-21 11:53] VITALS: BP 117/58; PULSE 67; O2SAT 100
[2023-04-21 12:00] VITALS: BP 110/61; PULSE 62; O2SAT 100
[2023-04-21 12:30] VITALS: BP 109/70; PULSE 69; O2SAT 100
== END 2023-04-21 12:52 | disposition home or self-care (01) ==
PROVIDERS: Family Medicine; Emergency Provider Emergency Medicine; PCP Family Medicine
DX: G43.909 Migraine, unspecified, not intractable, without status migrainosus (principal); H53.9 Unspecified visual disturbance
CPT/HCPCS: 70450; 80053; 85025; 93005; 96374; 96375; 99285; J1885; J2765; J3490; J7030

== ENCOUNTER → 2024-01-16 11:45 | Outpatient (BNVA) | payer BC, SELFPAY | PROVIDERS: PCP Family Medicine; Visit Provider Nurse Practitioner | DX: R39.9 Unspecified symptoms and signs involving the genitourinary system (principal) | CPT/HCPCS: 81000; 87086 ==

== ENCOUNTER 2024-02-02 16:13 | Emergency (ER) | payer BC, SELFPAY ==
[2024-02-02 16:20] VITALS: BP 116/77; PULSE 56; TEMP 36.4; O2SAT 100; BMI 29.9
[2024-02-02 16:58] LABS: Basophils # 0.1 10^3/uL (0.0-0.1); Basophils % 0.7 %; Eosinophils # 0.1 10^3/uL (0.0-0.8); Hematocrit 45.5 % (36-47); Lymphocytes # 2.5 10^3/uL (0.8-4.8); Lymphocytes % 36.2 %; Mean Corpuscular HGB Conc 32.1 g/dL (30-55); Mean Corpuscular Volume 90.3 fl (85-98); Monocytes # 0.4 10^3/uL (0.2-0.9); Monocytes % 5.3 %; Neutrophils # 3.81 10^3/uL (1.8-7.7); Neutrophils % 55.7 %; Nucleated Red Blood Cells % 0 %; Platelet Count 296 10^3/cmm (157-399); Red Blood Count 5.04 10^6/uL (3.85-5.65); Red Cell Distribution Width 12.9 % (12.1-15.1); White Blood Count 6.85 10^3/uL (3.29-11.43)
[2024-02-02 17:21] LABS: HCG, Serum Qual Negative (Negative)
[2024-02-02 17:27] LABS: Alanine Aminotransferase 18 U/L (0-33); Albumin Level 4.2 g/dL (3.5-5.2); Alkaline Phosphatase 76 U/L (35-105); Anion Gap 13.9 (5-19); Aspartate Amino Transferase 18 U/L (0-32); Blood Urea Nitrogen 8 mg/dL (6-20); Calcium 9.4 mg/dL (8.5-10.5); Carbon Dioxide 22 mmol/L (22-29); Chloride 107 mmol/L (98-107); Creatinine Clr Calc Pharmacy 137.4361; Globulin 3.4 g/dL (1.3-4.6); Glomerular Filtration Rate 98.3 mL/min (90-130); Glucose 84 mg/dL (65-115); Lipase 23 U/L (13-60); Osmolality Calculated 286 mOsm/kg (285-295); Potassium 3.9 mmol/L (3.5-5.1); Sodium 139 mmol/L (136-145); Total Bilirubin 0.4 mg/dL (0.15-1.2); Total Protein 7.6 g/dL (6.6-8.7)
[2024-02-02 18:27] VITALS: BP 120/67; PULSE 45; RESP 16; O2SAT 100
[2024-02-02 18:30] VITALS: PULSE 46; O2SAT 100
--- NOTE | 2024-02-02 18:35 | XRR_ITS ---
PROCEDURE INFORMATION: Exam: XR Chest Exam date and time: 02/02/2024 6:37 PM Age: 28 years old Clinical indication: Pain; Chest pressure; Additional info: Cp TECHNIQUE: Imaging protocol: Radiologic exam of the chest. Views: 1 view. COMPARISON: CR XR KUB portable [id number] 03/10/2021 3:27 PM FINDINGS: Lungs: There is a normal-variant azygous lobe in the right lung apex. No focal consolidation. Pleural spaces: No sizable pleural effusion. No pneumothorax. Heart/Mediastinum: Unremarkable cardiomediastinal silhouette. Bones/joints: The osseous structures are unremarkable. Other findings: Clips in the right upper quadrant consistent with prior cholecystectomy. XR/XR chest 1V portable [id number] IMPRESSION: No acute findings.
--- NOTE | 2024-02-02 18:38 | W.ED.GENADLT ---
HPI - General Adult General: Chief complaint: General Medical Stated complaint: abd, back, chest and head pain, Time Seen by Provider: 02/02/24 18:23 Source: patient Mode of arrival: ambulatory Limitations: no limitations History of Present Illness: 28-year-old female here with multiple complaints she states that she has been having abdominal pain chest pains headaches for a month. She states that pain is just diffuse in nature she denies any fever she denies any vomiting or diarrhea denies any cough she is resting here comfortably. Associated symptoms: Reports chest pain and headache(s); Deny dyspnea, nausea, rash or vomiting Related Data Home Medications Medication Instructions Recorded Confirmed tizanidine 2 mg capsule 2 mg PO TID PRN Pain 08/17/19 01/16/24 omeprazole 40 mg capsule,delayed 40 mg PO DAILY 06/12/20 01/16/24 release duloxetine 40 mg capsule,delayed 40 mg PO DAILY 12/28/21 01/16/24 release sprinkle topiramate 25 mg tablet (Topamax) 25 mg PO BID 12/28/21 01/16/24 ubrogepant 100 mg tablet (Ubrelvy) mg PO ONCE PRN 10/20/23 01/16/24 Previous Rx's Medication Instructions Recorded drospirenone 3 mg-ethinyl 1 tab PO DAILY #84 tabs 11/14/23 estradiol 0.02 mg tablet (JENNI (28)) nitrofurantoin 100 mg PO BID 7 days #14 caps 01/16/24 monohydrate/macrocrystals 100 mg capsule (Macrobid) cephalexin 500 mg capsule 500 mg PO TID 7 days #21 caps 02/02/24 polyethylene glycol 3350 17 gram 17 g PO DAILY PRN constipation #14 02/02/24 oral powder packet (Miralax) ea Allergies Allergy/AdvReac Type Severity Reaction Status Date / Time No Known Allergies Allergy Verified 02/02/24 16:27 Review of Systems Const: Denies: fever(s) or chills ENMT: Denies: throat pain or dental pain Card: Reports: chest pain Resp: Denies: dyspnea GI: Reports: abdominal pain; Denies: nausea, vomiting or diarrhea : Denies: dysuria Musc: Reports: back pain; Denies: neck pain Skin/Breast: Denies: rash Neuro: Reports: headache(s) [facility] ED PFSH: Medical History GERD (gastroesophageal reflux disease) Gastritis Bleeding per rectum Fibromyalgia Chronic pain Surgical History History of cholecystectomy Family History Mother CAD (coronary artery disease) Hypertension Heart disease Other Cancer Diabetes Denies family history of Colon cancer Ovarian cancer Hypercholesteremia Breast cancer Uterine cancer Thyroid disease Stroke Social History Smoking and tobacco/nicotine status: never used tobacco/nicotine Substance/Drug Use: never Physical Exam Const: COMMON NORMALS: no acute distress, patient oriented x3 and healthy appearing HENMT: COMMON NORMALS: normocephalic and atraumatic HEAD & SCALP: normocephalic and atraumatic Neck/C-Spine: COMMON NORMALS: full ROM and supple Chest: COMMONS NORMALS: normal inspection of the chest Resp: COMMON NORMALS: normal respiratory effort Cardio: COMMON NORMALS: regular rate, regular rhythm and No murmurs present (Cardio) RATE: regular rate RHYTHM: regular rhythm GI: COMMON NORMALS: Normal to inspection, nondistended, normoactive bowel sounds present, Soft to palpation, non-tender and no masses PALPATION: Yes Soft to palpation Extremity: COMMON NORMALS: normal to inspection and full ROM Neuro: COMMON NORMALS: patient oriented x3, moves all extremities and no focal motor deficits Psych: COMMON NORMALS: mental status grossly normal, Normal thought process present and cooperative THOUGHT PROCESS: Normal thought process present Skin: COMMON NORMALS: no rashes or lesions noted and no wounds GENERAL SKIN EXAM: no rashes or lesions noted Course Vital Signs: Vital signs: Vital Signs Temperature 97.6 F 02/02/24 16:20 Pulse Rate 46 L 02/02/24 18:30 Respiratory Rate 16 02/02/24 18:27 Blood Pressure 120/67 02/02/24 18:27 Pulse Oximetry 100 02/02/24 18:30 Oxygen Delivery Me thod Room Air 02/02/24 18:27 MDM - General Adult Medical Decision Making Patient presents with complaints of abdominal pain her exam here is benign she does have a UTI we will start her on Keflex she is otherwise well-appearing here she states she had had some constipation we will prescribe her some MiraLAX she is to follow-up with PCP and return if worsening. Medical Records I reviewed the patient's medical records. Lab Data I reviewed the patient's lab results. 02/02/24 16:50 02/02/24 16:50 Laboratory Results WBC 6.85 10^3/uL (3.29-11.43) 02/02/24 16:50 RBC 5.04 10^6/uL (3.85-5.65) 02/02/24 16:50 Hgb 14.60 g/dL (11.27-16.99) 02/02/24 16:50 Hct 45.5 % (36-47) 02/02/24 16:50 MCV 90.3 fl (85-98) 02/02/24 16:50 MCH 29.0 pg (27-33) 02/02/24 16:50 MCHC 32.1 g/dL (30-55) 02/02/24 16:50 RDW 12.9 % (12.1-15.1) 02/02/24 16:50 Plt Count 296 10^3/cmm (157-399) 02/02/24 16:50 MPV 10.0 fL (7.4-10.4) 02/02/24 16:50 Neut % (Auto) 55.7 % 02/02/24 16:50 Lymph % (Auto) 36.2 % 02/02/24 16:50 [place] % (Auto) 5.3 % 02/02/24 16:50 Eos % (Auto) 2.0 % 02/02/24 16:50 Baso % (Auto) 0.7 % 02/02/24 16:50 Neut # (Auto) 3.81 10^3/uL (1.8-7.7) 02/02/24 16:50 Lymph # (Auto) 2.5 10^3/uL (0.8-4.8) 02/02/24 16:50 [place] # (Auto) 0.4 10^3/uL (0.2-0.9) 02/02/24 16:50 Eos # (Auto) 0.1 10^3/uL (0.0-0.8) 02/02/24 16:50 Baso # (Auto) 0.1 10^3/uL (0.0-0.1) 02/02/24 16:50 Nucleated RBC % (auto) 0 % 02/02/24 16:50 Nucleated RBCs # 0.0 /100WBC 02/02/24 16:50 Sodium 139 mmol/L (136-145) 02/02/24 16:50 Potassium 3.9 mmol/L (3.5-5.1) 02/02/24 16:50 Chloride 107 mmol/L (98-107) 02/02/24 16:50 Carbon Dioxide 22 mmol/L (22-29) 02/02/24 16:50 Anion Gap 13.9 (5-19) 02/02/24 16:50 BUN 8 mg/dL (6-20) 02/02/24 16:50 Creatinine 0.7 mg/dL (0.5-0.9) 02/02/24 16:50 GFR Calculation 98.3 mL/min (90-130) 02/02/24 16:50 Glucose 84 mg/dL (65-115) 02/02/24 16:50 Calculated Osmolality 286 mOsm/kg (285-295) 02/02/24 16:50 Calcium 9.4 mg/dL (8.5-10.5) 02/02/24 16:50 Total Bilirubin 0.4 mg/dL (0.15-1.2) 02/02/24 16:50 AST 18 U/L (0-32) 02/02/24 16:50 ALT 18 U/L (0-33) 02/02/24 16:50 Alkaline Phosphatase 76 U/L (35-105) 02/02/24 16:50 Total Protein 7.6 g/dL (6.6-8.7) 02/02/24 16:50 Albumin 4.2 g/dL (3.5-5.2) 02/02/24 16:50 Globulin 3.4 g/dL (1.3-4.6) 02/02/24 16:50 Lipase 23 U/L (13-60) 02/02/24 16:50 HCG, Qual Negative (Negative) 02/02/24 16:50 Urine Color Yellow (Yellow) 02/02/24 18:35 Urine Appearance Slightly cloudy (CLEAR) 02/02/24 18:35 Urine pH 5.5 (5-7) 02/02/24 18:35 Ur Specific [place] 1.023 (1.005-1.030) 02/02/24 18:35 Urine Protein Trace (Negative) A 02/02/24 18:35 Urine Glucose (UA) Negative (Normal) 02/02/24 18:35 Urine Ketones Negative (Negative) 02/02/24 18:35 Urine Blood Non-haemolysed trace (Negative) 02/02/24 18:35 Urine Nitrate Negative (Negative) 02/02/24 18:35 Urine Bilirubin Negative (Negative) 02/02/24 18:35 Urine Urobilinogen 1.0 mg/dL (Negative) 02/02/24 18:35 Ur Leukocyte Esterase 1+ (Negative) A 02/02/24 18:35 Urine RBC 3-5 /hpf (0-2) 02/02/24 18:35 Urine WBC 21-50 /hpf (0-5) H 02/02/24 18:35 Ur Squamous Epith Cells 6-10 /hpf (0-5) 02/02/24 18:35 Amorphous Sediment Not Reportable 02/02/24 18:35 Urine Bacteria 3+ /hpf (NONE) H 02/02/24 18:35 Hyaline Casts 2.46 /lpf 02/02/24 18:35 All radiology interpretation(s) finalized by discharge EKG Data EKG 1: I personally reviewed and interpreted this EKG as follows: EKG interpretation date: 02/02/24 EKG interpretation time: 18:41 Interpretation: sinus khoa hr [address] or t wave abnormalities qrs 98 qtc 388 Discharge Plan Discharge Patient Disposition: Home Clinical Impression: Abdominal pain, UTI (urinary tract infection) Condition: Stable Prescriptions: New cephalexin 500 mg capsule 500 mg PO TID 7 Days Qty: 21 0RF polyethylene glycol 3350 [Miralax] 17 gram powder in packet 17 g PO DAILY PRN (Reason: constipation) Qty: 14 0RF No Action omeprazole 40 mg capsule,delayed release(DR/EC) 40 mg PO DAILY tizanidine 2 mg capsule 2 mg PO TID PRN (Reason: Pain) topiramate [Topamax] 25 mg tablet 25 mg PO BID duloxetine 40 mg capsule, delayed rel sprinkle 40 mg PO DAILY nitrofurantoin monohyd/m-cryst [Macrobid] 100 mg capsule 100 mg PO BID 7 Days Qty: 14 0RF Rx Instructions: must administer with a meal/food Ubrelvy 100 mg tablet PO ONCE PRN drospirenone-ethinyl estradiol [JENNI (28)] 3-0.02 mg tablet 1 tab PO DAILY Qty: 84 3RF Rx Instructions: take one tab daily Discharge Orders: Discharge ED (Routine); Ordered 02/02/24 Ordered By: Feng Stone Referrals: Macy Saucedo MD [Primary Care Provider] - 4-7 days Discharge Diet: Advance as tolerated Discharge Activity: Resume usual activity Patient Instructions: Urinary Tract Infection in Women (ED), Abdominal Pain (ED) Coding Level of Care Code ED Semiconductor Engineer for Jad Dahl
--- NOTE | 2024-02-02 18:41 | ECG_ITS ---
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 Measurements Intervals [place] Rate: 54 P: 25 IA: 143 QRS: 37 QRSD: 98 T: 42 QT: 403 QTc: 382 Interpretive Statements SINUS BRADYCARDIA WITH MARKED SINUS ARRHYTHMIA Compared to ECG 04/21/2023 10:28:15 Sinus rhythm no longer present Electronically Signed On 02-03-2024 16:53:09 EDGE WORKER by Pam Mccray M.D. [email or web address]
[2024-02-02] MEDS: ketorolac 60 mg/2 mL INJ IM (18:45)
[2024-02-02 19:08] LABS: Bacteria Urine 3+ /hpf; Hyaline Casts Urine 2.46 /lpf; WBC Urine 21-50 /hpf (0-5)
[2024-02-02 19:11] LABS: Add Urine Microscopic? YES; Bilirubin Urine Negative (Negative); Blood Urine Non-haemolysed trace (Negative); Glucose Urine UA Negative (Normal); Ketones Urine Negative (Negative); Leukocyte Esterase Urine 1+ (Negative); Nitrate Urine Negative (Negative); Protein Urine Trace (Negative); Specific Gravity, Urine 1.023 (1.005-1.030); Urine Appearance Slightly Cloudy (CLEAR); Urine Color Yellow (Yellow); pH Urine 5.5 (5-7)
[2024-02-02 19:12] LABS: Add Urine Culture? Yes
[2024-02-02] MEDS: cefTRIAXone 1,000 mg SDV 1000 MG IVP (19:29)
[2024-02-02 19:39] VITALS: BP 122/77; PULSE 45; O2SAT 99
--- NOTE | 2024-02-06 17:55 | ECG_ITS ---
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 Measurements Intervals [place] Rate: 62 P: 32 MT: 142 QRS: 33 QRSD: 88 T: 40 QT: 405 QTc: 412 Interpretive Statements SINUS RHYTHM WITH SINUS ARRHYTHMIA Compared to ECG 04/21/2023 10:28:15 No significant changes Electronically Signed On 02-08-2024 01:06:24 MAINTENANCE ADVISOR by Pam Mccray M.D. [email or web address]
== END 2024-02-02 19:40 | disposition home or self-care (01) ==
PROVIDERS: Emergency Provider Emergency Medicine; PCP Family Medicine
DX: N39.0 Urinary tract infection, site not specified (principal); R10.9 Unspecified abdominal pain
CPT/HCPCS: 36415; 71045; 80053; 81001; 83690; 84703; 85025; 87086; 93005; 96372; 96374; 99285; J0696; J1885

== ENCOUNTER → 2024-09-19 11:18 | Outpatient (BNVA) | payer BC, SELFPAY | PROVIDERS: PCP Family Medicine; Visit Provider Nurse Practitioner Women's Health | DX: N92.6 Irregular menstruation, unspecified (principal) | CPT/HCPCS: 76830 ==

== ENCOUNTER → 2024-10-17 10:37 | Outpatient (BNVA) | payer BC, SELFPAY | PROVIDERS: PCP Family Medicine; Visit Provider Obstetrics & Gynecology | DX: Z01.419 Encounter for gynecological examination (general) (routine) without abnormal findings (principal) | CPT/HCPCS: 87624 ==

== ENCOUNTER → 2024-12-17 15:33 | Outpatient (BNVA) | payer BC, SELFPAY | PROVIDERS: PCP Family Medicine; Visit Provider Family Medicine | DX: Z01.810 Encounter for preprocedural cardiovascular examination (principal) | CPT/HCPCS: 80053; 83690; 85025 ==

== ENCOUNTER 2025-01-15 10:51 | Observation (INO) | payer BC, SELFPAY ==
[2025-01-15] VITALS (20 sets, daily range): BP systolic 94–119; BP diastolic 60–81; PULSE 67–100; RESP 15–18; TEMP 36.1–36.9; O2SAT 92–99; BMI 30.4
--- NOTE | 2025-01-15 00:07 | W.PM.OPSFHP ---
Same Day Surgery H&P Indication for Procedure/HPI DATE OF PROCEDURE: January 15, 2025 CHIEF COMPLAINT/INDICATIONFOR SURGICAL PROCEDURE: menorrhagia PREOP DIAGNOSIS: menorrhagia PLANNED PROCEDURE: Operation Date: 01/15/25 07:00 Proposed Procedures p Laparoscopic Assisted Vaginal Hysterectomy 01544 N92.0 N94.6 N92.6(Not Applicable) - Miles Luna MD Medications/Allergies* Home Medications ?Medication ?Instructions ?Recorded ?Confirmed ?Type tizanidine 2 mg capsule 2 mg PO TID PRN Pain 08/17/19 01/14/25 History omeprazole 40 mg capsule,delayed 40 mg PO DAILY 06/12/20 01/14/25 History release duloxetine 40 mg capsule,delayed 40 mg PO DAILY 12/28/21 01/14/25 History release sprinkle topiramate 25 mg tablet (Topamax) 25 mg PO BID 12/28/21 01/14/25 History ubrogepant 100 mg tablet (Ubrelvy) 100 mg PO ONCE PRN Migraine 10/20/23 01/14/25 History Headache fremanezumab-vfrm 225 mg/1.5 mL 225 mg SUBCUT Q30D 10/17/24 01/14/25 History subcutaneous auto-injector (Ajovy) Allergies/Adverse Reactions Allergy/AdvReac Type Severity Reaction Status Date / Time No Known Allergies Allergy Verified 10/17/24 09:21 Pertinent History/Comorbid Conditions* Medical History (Updated 12/17/24 @ 15:05 by Ke Monteiro MD) GERD (gastroesophageal reflux disease) Gastritis Bleeding per rectum Fibromyalgia Chronic pain Surgical History (Updated 12/28/21 @ 18:18 by Nadia Hayes MD) History of cholecystectomy Family History (Updated 12/28/21 @ 12:57 by Denise Graham) Diabetes CAD (coronary artery disease) Mother Heart disease Mother Cancer Hypertension Mother Denies family history of Colon cancer Ovarian cancer Hypercholesteremia Breast cancer Uterine cancer Thyroid disease Stroke Social History Smoking and tobacco/nicotine status: never used tobacco/nicotine Substance/Drug Use: never Pertinent Exam Findings alert, oriented x 3, clear to auscultation bilaterally and regular rate & rhythm Recommendations Surgery/Procedure today Coding Level of Care Code Acute Code for Chg Fwd
[2025-01-15 06:27] LABS: OR HCG Qualitative Urine Negative (Negative)
--- NOTE | 2025-01-15 06:33 | ANES.PREANE2 ---
Pre-Anesthetic Assessment Height/Weight: Height 5 ft 8 in Weight 200 lb Temp Pulse Resp BP Pulse Ox O2 Del Method 96.9 F L 77 18 112/66 99 Room Air 01/15/25 06:17 01/15/25 06:17 01/15/25 06:17 01/15/25 06:17 01/15/25 06:17 01/15/25 06:19 Preop Diagnosis: menorrhagia Operation Date: 01/15/25 07:00 Proposed Procedures p Laparoscopic Assisted Vaginal Hysterectomy 35246 N92.0 N94.6 N92.6(Not Applicable) - Miles Luna MD Was Beta Lisa taken within 24 hours: N/A Was Clonidine taken within 24 hours: N/A Last intake: Intake Last Liquid Date 01/14/25 Last Liquid Time 19:00 Last Solid Date 01/14/25 Last Solid Time 18:00 Social No alcohol and No tobacco Patient states that she used to drink quite a bit of alcohol Exam alert, oriented x 3, clear to auscultation bilaterally and regular rate & rhythm Airway Submandibular: within normal limits Cervical ROM: within normal limits Mallampati: Class I Dentition: full Anesthetic Plan ASA status: 2 Anesthesia: General Other: No prior issues with anesthesia NPO since yesterday evening History of GERD, controlled with omeprazole Fibromyalgia hCG negative today Recent labs 12/17/2024 reviewed acceptable for procedure today Type and screen performed Plan for general anesthesia Medications/Allergies Home Medications ?Medication ?Instructions ?Recorded ?Confirmed ?Last Taken ?Type tizanidine 2 mg capsule 2 mg PO TID PRN Pain 08/17/19 01/14/25 07/15/20 History omeprazole 40 mg capsule,delayed 40 mg PO DAILY 06/12/20 01/14/25 01/14/25 History release duloxetine 40 mg capsule,delayed 40 mg PO DAILY 12/28/21 01/14/25 01/14/25 History release sprinkle topiramate 25 mg tablet (Topamax) 25 mg PO BID 12/28/21 01/14/25 Unknown History ubrogepant 100 mg tablet (Ubrelvy) 100 mg PO ONCE PRN Migraine 10/20/23 01/14/25 01/13/25 History Headache polyethylene glycol 3350 17 gram 17 g PO DAILY PRN constipation #14 02/02/24 01/14/25 Unknown Rx oral powder packet (Miralax) ea fremanezumab-vfrm 225 mg/1.5 mL 225 mg SUBCUT Q30D 10/17/24 01/14/25 12/14/24 History subcutaneous auto-injector (Ajovy) Allergies Allergy/AdvReac Type Severity Reaction Status Date / Time No Known Allergies Allergy Verified 01/15/25 06:09 [facility] Anesthesia Medical History (Updated 12/17/24 @ 15:05 by Ke Monteiro MD) GERD (gastroesophageal reflux disease) Gastritis Bleeding per rectum Fibromyalgia Chronic pain Surgical History History of cholecystectomy Family History Mother CAD (coronary artery disease) Hypertension Heart disease Other Cancer Diabetes Denies family history of Colon cancer Ovarian cancer Hypercholesteremia Breast cancer Uterine cancer Thyroid disease Stroke Social History Smoking and tobacco/nicotine status: never used tobacco/nicotine Substance/Drug Use: never
--- NOTE | 2025-01-15 06:53 | W.PM.OPSFHP ---
Same Day Surgery H&P Indication for Procedure/HPI DATE OF PROCEDURE: January 15, 2025 CHIEF COMPLAINT/INDICATIONFOR SURGICAL PROCEDURE: menorrhagia PREOP DIAGNOSIS: menorrhagia PLANNED PROCEDURE: Operation Date: 01/15/25 07:00 Proposed Procedures p Laparoscopic Assisted Vaginal Hysterectomy 17139 N92.0 N94.6 N92.6(Not Applicable) - Miles Luna MD Medications/Allergies* Home Medications ?Medication ?Instructions ?Recorded ?Confirmed ?Type tizanidine 2 mg capsule 2 mg PO TID PRN Pain 08/17/19 01/14/25 History omeprazole 40 mg capsule,delayed 40 mg PO DAILY 06/12/20 01/14/25 History release duloxetine 40 mg capsule,delayed 40 mg PO DAILY 12/28/21 01/14/25 History release sprinkle topiramate 25 mg tablet (Topamax) 25 mg PO BID 12/28/21 01/14/25 History ubrogepant 100 mg tablet (Ubrelvy) 100 mg PO ONCE PRN Migraine 10/20/23 01/14/25 History Headache fremanezumab-vfrm 225 mg/1.5 mL 225 mg SUBCUT Q30D 10/17/24 01/14/25 History subcutaneous auto-injector (Ajovy) Allergies/Adverse Reactions Allergy/AdvReac Type Severity Reaction Status Date / Time No Known Allergies Allergy Verified 01/15/25 06:09 Pertinent History/Comorbid Conditions* Medical History (Updated 12/17/24 @ 15:05 by Ke Monteiro MD) GERD (gastroesophageal reflux disease) Gastritis Bleeding per rectum Fibromyalgia Chronic pain Surgical History (Updated 12/28/21 @ 18:18 by Nadia Hayes MD) History of cholecystectomy Family History (Updated 12/28/21 @ 12:57 by Denise Graham) Diabetes CAD (coronary artery disease) Mother Heart disease Mother Cancer Hypertension Mother Denies family history of Colon cancer Ovarian cancer Hypercholesteremia Breast cancer Uterine cancer Thyroid disease Stroke Social History Smoking and tobacco/nicotine status: never used tobacco/nicotine Substance/Drug Use: never Pertinent Exam Findings alert, oriented x 3, clear to auscultation bilaterally and regular rate & rhythm Recommendations Surgery/Procedure today Coding Level of Care Code Acute Code for Chg Fwd
--- NOTE | 2025-01-15 06:53 | W.PM.OPSUD ---
Surgery/Procedure H&P Update DATE OF PROCEDURE: January 15, 2025 DATE H&P PERFORMED: 01/15/25 H&P UPDATE INFORMATION: I have reviewed H&P completed within last 30 days, I have examined patient prior to procedure and No changes to prior documentation PREOP DIAGNOSIS: menorrhagia PLANNED PROCEDURE: Operation Date: 01/15/25 07:00 Proposed Procedures p Laparoscopic Assisted Vaginal Hysterectomy 41964 N92.0 N94.6 N92.6(Not Applicable) - Miles Luna MD
[2025-01-15] MEDS: metroNIDAZOLE IV 500 MG/100 ML PREMIX 100 MG IV (07:00)
[2025-01-15] MEDS: ceFAZolin 2,000 mg SDV 2000 MG IVP (07:20)
--- NOTE | 2025-01-15 08:52 | SUR.OPER ---
UPDATED FAMILY VIA WAITING AREA [id number]
--- NOTE | 2025-01-15 10:34 | PM.OP2 ---
Brief Operative Note Date of procedure: 01/15/25 Pre-op diagnosis: menorrhagia Post-op diagnosis: same Procedure Done: total laparoscopic hysterectomy Surgeon: Miles Luna Estimated blood loss (mL): 10 Complications: none Post-op Plan: floor
[2025-01-15] MEDS: fentaNYL 50 mcg/mL INJ 2mL IVP ×2 (10:54→11:02)
--- NOTE | 2025-01-15 11:35 | ANE.PACU2 ---
Inpatient post-anesthesia follow up: Airway intact: Yes Vital signs: Temperature 97.6 F Pulse Rate 100 Respiratory Rate 15 Blood Pressure 115/76 Pulse Oximetry 98 Oxygen Delivery Me thod Room Air Oxygen Flow Rate Fraction of Inspir ed Oxygen Hydration adequate: Yes Nausea and vomiting: No Pain level: 1 Mental status: Baseline
--- NOTE | 2025-01-15 12:05 | PM.OP ---
Operative Report Date of procedure: January 15, 2025 Pre-op diagnosis: menorrhagia Post-op diagnosis: same Post-op findings: Normal uterus Normal fallopian tubes Normal ovaries Normal pelvis Procedure done: Total laparoscopic hysterectomy Bilateral salpingectomy Implants: none Specimens removed/disposition: uterus; fallopian tubes Surgeon: Miles Luna MD Central Lab Technician: Horacio Perdomo MD Anesthesia: General Estimated blood loss (mL): 10 Complications: none Findings: see above Condition: stable Disposition: PACU Brief History: 29 y.o. with chronic menorrhagia Procedure: The patient was taken to the operating room, placed supine on the table. General endotracheal anesthesia was induced. A time-out was performed. Two grams of Ancef and 500 mg of Flagyl IV were given. A malik catheter was placed which drained clear urine. The patient was placed in dorsolithotomy position for laparoscopic surgery. The abdomen and perineum were prepped and draped in the usual sterile fashion. A Sydney uterine manipulator was placed via the cervix for manipulation of the uterus. An umbilical skin incision was made measuring approximately 5 mm. A Veress needle was inserted. After confirming intraperitoneal entry, a pneumoperitoneum was achieved. The Veress needle was removed. A trocar with sheath was placed. A laparoscope was inserted and used to visualize the pelvic organs. Normal uterus, tubes, and ovaries were seen. The remainder of the pelvis was normal. Two additional skin incisions were made measuring 0.5 cm each in the suprapubic and left lower quadrant. 5 mm trocars with sheaths were inserted via these incisions under laparoscopic visualization. A Ligasure device and endograsper were placed. The Ligasure device was used to divide the round ligaments on both sides followed by the uteroovarian ligaments. These were successfully coagulated and divided without any bleeding. The utero-ovarian vessels were identified, sealed and divided and carried through to the round ligaments. The Ligasure device was then used to divide the uterine vessels perpendicular to the ascending branch, at the level of the internal cervical os. Cephalad traction was maintained during this part of the procedure to reduce possible injury to bilateral ureters. The colpotomizer ring was used to identify the cervico-vaginal junction which was entered using the monopolar hook. Circumferential colpotomy was performed using hook monopolar device. The specimen was removed from the vagina without difficulty. There was no bleeding from the vaginal cuff. The vaginal cuff was closed using O-Vicyl suture ligature, placed vaginally. Bilateral salpingectomy was also performed using the Ligasure device and the fallopian tubes were removed. Inspection of the pelvis using the laparoscope showed good hemostasis and intact bladder. Following this, all instruments were removed from the abdomen after the pneumoperitoneum was allowed to escape. The laparoscopic skin incisions were then closed using 4-O skin sutures. The patient was placed supine and taken to the recovery room. Postoperative condition stable EBL: 10 cc Complications: none To PACU in good condition
[2025-01-16 04:40] VITALS: BP 113/72; PULSE 55; RESP 15; O2SAT 98
[2025-01-16 05:36] LABS: Hematocrit 37.1 % (36-47); Hemoglobin 12.00 g/dL (11.27-16.99); Mean Corpuscular HGB Conc 32.3 g/dL (30-55); Mean Corpuscular Hemoglobin 28.8 pg (27-33); Mean Corpuscular Volume 89.2 fl (85-98); Platelet Count 263 10^3/cmm (157-399); Red Blood Count 4.16 10^6/uL (3.85-5.65); White Blood Count 16.28 10^3/uL (3.29-11.43)
--- NOTE | 2025-01-16 08:36 | P.PN_ITS ---
Subjective 2 Subjective: Date & Time: 2025-01-16 Patient Name: : MRN: Author / Clinician: Horacio Perdomo MD (CARGO SERVICES COORDINATOR) Subjective Chief Complaint: ?Post-op check ? day after my hysterectomy.? History of Present Illness: Post-operative day (POD) #1 following laparoscopic-assisted vaginal hysterectomy (LAVH) with bilateral salpingectomy performed for menorrhagia. The patient reports adequate pain control with current regimen, is up ambulating in the hallway, and notes only minimal vaginal spotting. She is tolerating diet without nausea or vomiting and is voiding spontaneously. Review of Systems: ? Constitutional: Denies fever or chills; patient feels well overall. ? Gastrointestinal: Tolerating diet; no nausea, vomiting, or abdominal pain. ? Genitourinary: Voiding spontaneously; minimal vaginal bleeding. ? Musculoskeletal: Ambulating without difficulty. Objective Vital Signs Measure Value Temperature Afebrile 98.4 Physical Exam: ? General: Awake, alert, recovering comfortably in no acute distress. ? Abdomen: Soft, nondistended, nontender, no guarding. ? Pelvic: Minimal vaginal bleeding noted on pad. ? : Woods catheter not in place; voiding spontaneously. ? Musculoskeletal: Ambulating in hallway without assistance. ? Skin: Incisions clean, dry, and intact. Laboratory data relevant for visit: ? Hemoglobin 12 g/dL ? Hematocrit 37.1% ? WBC 16.28 K/?L Imaging data relevant for visit None discussed. Assessment & Plan POD #1 status post LAVH with bilateral salpingectomy for menorrhagia, recovering well without post-operative complications. Problem #1: Post-operative care ? POD #1 s/p LAVH w/ bilateral salpingectomy Assessment: Patient clinically stable with adequate pain control, ambulating, tolerating diet, minimal vaginal bleeding, afebrile. WBC mildly elevated, likely post-surgical; no clinical signs of infection. No signs of anemia or infection. Plan: - Start Flagyl for 7 days as ordered. - Repeat CBC at 1500 today. - Continue current pain control regimen. - Encourage ambulation and advance diet as tolerated. - If stable after repeat labs and clinic al reassessment, discharge home after 1600 hrs with standard post-op instructions. Vitals/I&O/Wt Last Vital Signs Temp 98.4 F 01/15/25 21:30 Pulse 55 L 01/16/25 04:40 Resp 15 01/16/25 04:40 BP 113/72 01/16/25 04:40 Pulse Ox 98 01/16/25 04:40 O2 Del Method Room Air 01/16/25 04:40 01/15/25 01/16/25 01/16/25 22:59 06:59 14:59 Intake Total 1000 / 2400 Output Total 1000 / 1410 450 / 1860 Balance 0 / 990 -450 / 540 Weight last 48 hrs Weight 200 lb Weight 200 lb Physical Exam 2 Urinary Catheter Management: Woods: Cath Placed During This Visit: yes, but has since been removed by the nurse Reason for Continuing Indwelling Catheter: Decision to DC Catheter Date Urinary Catheter Removed: 01/16/25 Time Urinary Catheter Discontinued: 04:40 Data 01/16/25 04:40 A&P PDMP PDMP Reviewed: Not Reviewed Attestations 2 Medical Necessity Statement*: Recovering from major surgery Coding Level of Care Code Acute Code for Chg Fwd
[2025-01-16 10:20] VITALS: BP 131/78; PULSE 88; RESP 16; TEMP 36.8; O2SAT 97
[2025-01-16 15:01] LABS: Hematocrit 35.8 % (36-47); Hemoglobin 11.70 g/dL (11.27-16.99); Mean Corpuscular HGB Conc 32.7 g/dL (30-55); Mean Corpuscular Hemoglobin 29.3 pg (27-33); Mean Corpuscular Volume 89.5 fl (85-98); Nucleated Red Blood Cells % 0 %; Platelet Count 246 10^3/cmm (157-399); Red Blood Count 4.00 10^6/uL (3.85-5.65); White Blood Count 11.72 10^3/uL (3.29-11.43)
[2025-01-16 16:10] VITALS: BP 106/58; PULSE 70; RESP 16; TEMP 36.7; O2SAT 100
--- NOTE | 2025-01-16 16:31 | PM.OBGYDC ---
Discharge Providers MEDICAL IMAGING TECHNOLOGIST Date of Admission: 01/15/25 10:51 Date of Discharge: 01/16/25 Attending Provider at Admission: Miles Luna MD Attending Provider at Discharge: MD Conor Primary Care Provider: Macy Saucedo MD Reason for Visit Reason for Visit: N92.0 Hospital Course Hospital Course Discharge After LAVH Discharge Summary Patient: 29-year-old female Procedure: Laparoscopic-assisted vaginal hysterectomy (LAVH) for benign indication Date of Surgery: 01/15/2025 Hospital Course: - The patient underwent uncomplicated LAVH. Intraoperative findings were unremarkable, with no significant blood loss or intraoperative complications. - Postoperative recovery was uneventful. The patient was ambulatory, tolerating oral intake, and voiding spontaneously. Pain was well controlled with oral analgesics. Antimicrobial Prophylaxis: - The patient was started on metronidazole prophylaxis (500 mg orally twice daily) for 7 days postoperatively, targeting anaerobic vaginal niya - No signs of infection were noted during the hospital stay. Discharge Condition: - Afebrile, hemodynamically stable, and ambulating independently. - Incisions clean, dry, and intact. - No vaginal bleeding or abnormal discharge. Discharge Instructions: - Continue metronidazole 500 mg orally twice daily for 7 days. - Monitor for fever, increasing pelvic pain, abnormal vaginal discharge, or urinary symptoms. - Avoid heavy lifting, strenuous activity, and vaginal intercourse for 6 weeks. - Follow up in gynecology clinic in 1-2 weeks or sooner if concerning symptoms develop. Follow-Up: - Outpatient gynecology appointment scheduled for [insert date]. - Contact clinic or present to emergency department for signs of infection, severe pain, or other complications. Summary: The patient is stable for discharge following LAVH, with metronidazole prophylaxis prescribed to reduce postoperative infectious morbidity. The patient has been counseled on wound care, activity restrictions, and signs of infection Physical Exam Urinary Catheter Management: Woods: Cath Placed During This Visit: yes, but has since been removed by the nurse Reason for Continuing Indwelling Catheter: Decision to DC Catheter Date Urinary Catheter Removed: 01/16/25 Time Urinary Catheter Discontinued: 04:40 History History History 0 Term 1 0 Miscarriages/Ectopic 0 Living Children 0 Discharge Data Studies Completed and Pending Pending at discharge Category Date Time Status Pathology: Surgical [PTH] Routine Pth 01/15/25 10:55 Received Laboratory Results WBC 11.72 10^3/uL (3.29-11.43) H 01/16/25 14:55 RBC 4.00 10^6/uL (3.85-5.65) 01/16/25 14:55 Hgb 11.70 g/dL (11.27-16.99) 01/16/25 14:55 Hct 35.8 % (36-47) L 01/16/25 14:55 MCV 89.5 fl (85-98) 01/16/25 14:55 MCH 29.3 pg (27-33) 01/16/25 14:55 MCHC 32.7 g/dL (30-55) 01/16/25 14:55 RDW 13.4 % (12.1-15.1) 01/16/25 14:55 Plt Count 246 10^3/cmm (157-399) 01/16/25 14:55 MPV 9.8 fL (7.4-10.4) 01/16/25 14:55 Neut % (Auto) 60.4 % 01/16/25 14:55 Lymph % (Auto) 31.1 % 01/16/25 14:55 Brooks % (Auto) 7.0 % 01/16/25 14:55 Eos % (Auto) 0.9 % 01/16/25 14:55 Baso % (Auto) 0.4 % 01/16/25 14:55 Neut # (Auto) 7.07 10^3/uL (1.8-7.7) 01/16/25 14:55 Lymph # (Auto) 3.7 10^3/uL (0.8-4.8) 01/16/25 14:55 Brooks # (Auto) 0.8 10^3/uL (0.2-0.9) 01/16/25 14:55 Eos # (Auto) 0.1 10^3/uL (0.0-0.8) 01/16/25 14:55 Baso # (Auto) 0.1 10^3/uL (0.0-0.1) 01/16/25 14:55 Nucleated RBC % (auto) 0 % 01/16/25 14:55 Nucleated RBCs # 0.0 /100WBC 01/16/25 14:55 Urine HCG, Qual Negative (Negative) 01/15/25 06:07 Blood Type B Positive 01/15/25 06:35 Rho(D) Type Rh positive 01/15/25 06:35 Antibody Screen Negative 01/15/25 06:35 Vitals Last Vital Signs Temp 98.2 F 01/16/25 10:20 Pulse 88 01/16/25 10:20 Resp 16 01/16/25 10:20 BP 131/78 01/16/25 10:20 Pulse Ox 97 01/16/25 10:20 O2 Del Method Room Air 01/16/25 10:20 Results Labs OB ([facility]): Blood Type B Positive 01/15/25 Antibody Screen Negative 01/15/25 Hct, (36-47) 35.8 % L Today Hgb, (11.27-16.99) 11.70 g/dL Today Rho(D) Type Rh positive 01/15/25 Plt Count, (157-399) 246 10^3/cmm Today HCG, Qual, (Negative) Negative 02/02/24 Micro Urine Specimen 02/02/24 Pap Smear Interpret See note 10/17/24 Discharge Plan Discharge Patient Disposition: Home Condition: Stable Prescriptions: New metronidazole 500 mg Tablet 500 mg PO BID 0RF Continued omeprazole 40 mg capsule,delayed release(DR/EC) 40 mg PO DAILY tizanidine 2 mg capsule 2 mg PO TID PRN (Reason: Pain) topiramate [Topamax] 25 mg tablet 25 mg PO BID duloxetine 40 mg capsule, delayed rel sprinkle 40 mg PO DAILY Ajovy Autoinjector 225 mg/1.5 mL auto-injector 225 mg SUBCUT Q30D Ubrelvy 100 mg tablet 100 mg PO ONCE PRN (Reason: Migraine Headache) polyethylene glycol 3350 [Miralax] 17 gram powder in packet 17 g PO DAILY PRN (Reason: constipation) Qty: 14 0RF Discharge Order = DC NOW: Discharge Order (Routine); Ordered 01/16/25 Ordered By: Horacio Perdomo Referrals: Milse Luna MD [Physician, MEDICAL IMAGING TECHNOLOGIST] - 01/23/25 10:00 am Patient Instructions: Acute Wound Care (DC), Opioid Safety (DC), Laparoscopic Hysterectomy (DC), OB Food/Drug Interaction Guide, Opioid Safety, Post Anesthesia Care, Patient Portal & Krzysztof Instructions Stand Alone Forms: Work/School Release Discharge Attestations MEDICAL IMAGING TECHNOLOGIST Time Spent in Discharge Care*: greater than 30 min Coding Level of Care Code Acute Code for Chg Fwd
== END 2025-01-16 16:15 | disposition home or self-care (01) ==
LOC: OBGYN 10:51
PROVIDERS: Obstetrics & Gynecology; Student in an Organized Health Care Education/Training Program; Admitting Provider Obstetrics & Gynecology; PCP Family Medicine; Visit Provider Obstetrics & Gynecology
PROC: 0UT9FZZ Resection of Uterus, Via Natural or Artificial Opening With Percutaneous Endoscopic Assistance (ICD-10-PCS; CPT 58552; principal; 2025-01-15 07:00)
DX: N92.0 Excessive and frequent menstruation with regular cycle (principal); N72 Inflammatory disease of cervix uteri; K21.9 Gastro-esophageal reflux disease without esophagitis; M79.7 Fibromyalgia
CPT/HCPCS: 58552; 36415; 81025; 85025; 85027; 86850; 86900; 88307; A4216; G0378; J0690; J1171; J1885; J2250; J2704; J3010; J3490; J7030; J7121; J9999

== ENCOUNTER 2025-02-15 13:55 | Emergency (ER) | payer BC, SELFPAY ==
--- OUTSIDE RECORDS SUMMARY | 2025-02-12 07:45 | XMS_ITS | Encounter Summary ---
[facility] Address [address] [place] [address] Care Team Providers Care Aircraft General Repair Mechanic Name Role Phone Macy Saucedo MD Primary Care Provider + [phone] Reason for Visit * Reason Comments Follow Up Encounter Details Date Type Department Care Team (Late st Contact Info) Description 02/12/2025 7:45 AM AIRWAY CONTROLLER Video Visit [facility] Headache [facility] [place] [address] [facility] [address] [place] [address] Emily Soni, CRUSHER LOADER OPERATOR [address] [facility] [address] [place] [address] Chronic migraine without aura, with intractable migraine, so stated, with status migrainosus (Primary Dx); Chronic daily headache; Bilateral occipital neuralgia; Cervicalgia; Cervicogenic headache; Headache associated with hormonal factors Social History Tobacco Use Types Packs/Day Years Used Date Smoking Tobacco: Never Smokeless Tobacco: Never Alcohol Use Standard Drinks/Week Comments Yes 0 (1 standard drink = 0.6 oz pur e alcohol) occasional Feeling Safe Answer Date Recorded Are you in a relationship wi th someone who hurts you emotionally and/or physically? No 01/13/2023 Comments No Sex and Gender Information Value Date Recorded Sex Assigned at Not on file Legal Sex Female 7:07 AM AIRWAY CONTROLLER Gender Identity Not on file Sexual Orientation Not on file documented as of this encounter Progress Notes * Emily Soni, CRUSHER LOADER OPERATOR - 02/12/2025 6:42 AM CST Patient's identity confirmed yes Patient gave verbal consent to have these services billed to their insurance and expressed understanding that co-insurance and deductible may apply: yes Patient was located At home Date:02/12/2025 Referring Physician:Darryl Harrington MD Follow Up Visit Sheila Daniels is a 29 y.o. year old female here today for follow up evaluation and treatment by the [facility]. The patient arrives with a headache pain level of 0/10 and leaves with a 0/10. The patient was last seen on October 03. Since last visit the patient's headache's have improved withAjovy She has 3 -4 headache days per month. Over the last 3 months has there been at least a 50% REDUCTION in headache days compared to Baseline: YES Frequency: irregularly, No longer Daily Headaches Duration: 1, 2 days, Ubrelvy is effective Severity : Less Cervicalgia continues, not really all related to Headache Hysterectomy done 01/15 Medications Tried: Over the Counter Meds: Excedrin Migraine, IBU and Naprosyn Triptans: Imitrex (sumatriptan) made headache worse TCA's: trazodone ineffective for headache, Zoloft AED's: Topamax , Neurontin Opioids: Muscle Relaxation: Norflex, robaxin, parafon forte--none helped, Baclofen, Zanaflex Antiemetics: phenergan, Other: DHE made headache worse, steroids did help, toradol, Zoloft, tramadol, fiorcet, Aimovig, Ajovy, Botox, Propranolol, Qulipta, Emgality, Nurtec, Ubrelvy Allergies: No Known Allergies Review Of Systems: ROS Constitutional: Negative for weight loss and malaise/fatigue. HENT: Negative for congestion. Eyes: Negative for blurred vision and photophobia. CV/Respiratory: Negative for shortness of breath, chest pain, peripheral circulatory compromise. Psych: No change in mood. Sleep adequate. Cardiovascular: Negative for chest pain. Gastrointestinal: Negative for heartburn, nausea and vomiting. : No bowel or bladder dysfunction. Neurological: Negative for tingling, tremors, sensory change and focal weakness. Psychiatric/Behavioral: Negative for depression. The patient is not nervous/anxious. ASSESSMENT: ICD-10-CM ICD-9-CM 1. Chronic migraine without aura, with intractable migraine, so stated, with status migrainosus G43.711 346.73 2. Chronic daily headache R51.9 784.0 3. Bilateral occipital neuralgia M54.81 723.8 4. Cervicalgia M54.2 723.1 5. Cervicogenic headache G44.86 784.0 6. Headache associated with hormonal factors G44.89 339.89 Plan: 1.Recommend Magnesium and B2. Will continue Ajovy 225 mg SQ monthly - side effects discussed. Will continue Cymbalta 60 mg Daily - side effects discussed, Continue Topamax, will consider increasing dose. For rescue Ubrelvy, Zanaflex 4 mg. 2. The patient will continue to work toward goals of self management of headaches by practicing thefollowing healthy. albert De La Vega 3. Pt advised to treat symptoms at onset of headache, keep a headache diary, and document medication usage. Over half the appointment time was involved in provision of counseling and educational content regarding headache pathophysiology, medications, side effects, drug interactions, risk factors, non-pharmacologic management, and long-term care and management of headache disorders. 4. We will plan to see this patient back in 6 months to evaluate results of initiated treatment modalities. This encounter was completed via two-way synchronous audio and video communication. AY CONTROLLER documented in this encounter Plan of Treatment Upcoming Encounters Date Type Department Care Team (Late st Contact Info) Description 08/13/2025 11:50 AM CDT Office Visit [facility] Headache Management [place] [address] [place] [address] Emily Soni FNP [address] [place] [address] [place] [address] documented as of this encounter Visit Diagnoses Diagnosis Chronic migraine without aura, with intractable migraine, so stated, with status migrainosus- Primary Chronic daily headache Headache Bilateral occipital neuralgia Other syndromes affecting cervical region Cervicalgia Cervicogenic headache Headache Headache associated with hormonal factors Other headache syndromes documented in this encounter Care Teams Aircraft General Repair Mechanic Relationship Specialty Start Date End Date Macy Saucedo MD [address] [place] [address] PCP - General Family Practice 09/06/18 documented as of this encounter
[2025-02-15] VITALS (18 sets, daily range): BP systolic 95–117; BP diastolic 61–80; PULSE 65–97; RESP 16–18; TEMP 36.4; O2SAT 97–100
--- OUTSIDE RECORDS SUMMARY | 2025-02-15 14:00 | XMS_ITS | Clinical Summary ---
Author Organization [facility] Address [address] Prajapati: [place] [address] Care Team Providers Care Capital Equipment Specialist Name Role Phone Macy Saucedo MD Primary Care Provider Allergies No known active allergies Medications omeprazole (PriLOSEC) 40 mg Capsule, Delayed Release(E.C.) Take 40 mg by mouth daily. Active ubrogepant (Ubrelvy) 100 mg tablet TAKE 1 TABLET AT ONSET OF MIGRAINE, MAY REPEAT IN 2 HOURS IF NEEDED. MAX DOSE 200 MG IN 24 HOURS 16 Tablet 11 03/05/19 25 Active fremanezumab-v frm (AJOVY) 225 mg/1.5 mL Auto-Injector Inject 1.5 mL (225 mg) by subcutaneous injection every 30 days. 1.5 mL 11 10/04/19 25 Active DULoxetine (CYMBALTA) 60 mg Capsule, Delayed Release(E.C.) TAKE 1 CAPSULE BY MOUTH EVERY DAY 90 Capsule 3 11/06/19 25 Active topiramate (Topamax) 25 mg tablet Take 1 Tablet (25 mg) by mouth 3 times daily. 90 Tablet 11 02/13/20 25 Active topiramate (TOPAMAX) 50 mg tabletIndicati ons:Chronic migraine without aura, with intractable migraine, so stated, with status migrainosus,Ch ronic daily headache,Bilat eral occipital neuralgia,Cerv icalgia,Cervic ogenic headache,Heada angela associated with hormonal factors Take 1 Tablet (50 mg) by mouth 3 times daily. 90 Tablet 11 02/13/20 25 Active tiZANidine (ZANAFLEX) 4 mg Tablet Take 1 Tablet (4 mg) by mouth every 6 hours as needed for Spasm. 120 Tablet 11 02/13/20 25 Active topiramate (Topamax) 25 mg tablet Take 1 Tablet (25 mg) by mouth 2 times daily. 60 Tablet 11 11/10/192024 Discontinued tiZANidine (ZANAFLEX) 2 mg Tablet TAKE 1 TABLET BY MOUTH EVERY 6 HOURS NEEDED FOR SPASM 120 Tablet 11 12/01/192024 Discontinued(D ose/form adjustment) topiramate (TOPAMAX) 50 mg tabletIndicati ons:Cervicalgi a,Cervicogenic headache,Bilat eral occipital neuralgia,Head ache associated with hormonal factors,Chroni c daily headache,Chron ic migraine without aura, with intractable migraine, so stated, with status migrainosus TAKE 1 TABLET BY MOUTH TWICE A DAY 180 Tablet 3 01/01/202024 Discontinued Active Problems Problem Noted Date Diagnosed Date Chronic daily headache 11/21/2018 Bilateral occipital neuralgia 11/21/2018 Chronic migraine without aur a without status migrainosus, not intractable 09/25/2018 Cervicalgia 09/25/2018 Encounters Date Type Department Care Team Description 02/12/2025 7:45 AM TRANSPORTATION MECHANIC Video Visit [facility] [place] [address] [facility] [address] [place] [address] Emily Soni FNP Chronic migraine without aura, with intractable migraine, so stated, with status migrainosus (Primary Dx); Chronic daily headache; Bilateral occipital neuralgia; Cervicalgia; Cervicogenic headache; Headache associated with hormonal factors 01/22/2025 External Device Data STL ABSTRACTION Provider, Abstract 12/29/2024 Refill [facility] [place] [address] [place] [phone] Hediger, Emily A, SENIOR MANUFACTURING TECHNICIAN Chronic migraine without aura, with intractable migraine, so stated, with status migrainosus (Primary Dx); Cervicalgia; Cervicogenic headache; Bilateral occipital neuralgia; Headache associated with hormonal factors; Chronic daily headache 12/11/2024 External Device Data STL ABSTRACTION Provider, Abstract from Last 3 Months Immunizations Immunization Administration Dates Next Due (ADACEL/BOOSTRIX)(10 YR UP) TDAP VACCINE, 0.5ML, IM 10/15/2008 (GARDASIL)(9-45 YRS) HUMAN PAPILLOMAVIRUS VACCINE, TYPES 6, 11, 16, 18, QUADRIVALENT (4VHPV), 3 DOSE, IM 09/17/2009,12/19/2008,10/15/2008 (M-M-R II/PRIORIX)(12 MO UP) MEASLES, MUMPS AND RUBELLA VIRUS VACCINE, 0.5 ML IM/SUBCUT 10/22/1998,12/10/1994 Dt Dtp Dtap Vaccine 10/22/1998, 5,04/19/1994,02/04,1993 HIB, Unspecified Formulation 12/10/1994, 04/19/1994,02/04/1994,11/20 Hepatitis A Vaccine 09/17/2009,10/15/2008 Hepatitis B Vaccine 04/19/1994,1993,1993 IPV/OPV 10/22/1998, 5,02/04/1994,11/20 Meningococcal A Conjugate Vaccine IM 10/15/2008 Family History Medical History Relation Name Comments Headaches Maternal Grandmother Heart Disease Mother Healthy Sister Relation Name Status Comments Father Maternal Grandmother Mother Alive Sister Alive Social History Tobacco Use Types Packs/Day Years Used Date Smoking Tobacco: Never Smokeless Tobacco: Never Tobacco Cessation:Counseling Given: Not Answered Alcohol Use Standard Drinks/Week Comments Yes 0 (1 standard drink = 0.6 oz pur e alcohol) occasional Feeling Safe Answer Date Recorded Are you in a relationship wi th someone who hurts you emotionally and/or physically? No 01/13/2023 Comments No Sex and Gender Information Value Date Recorded Sex Assigned at Not on file Legal Sex Female 7:07 AM TRANSPORTATION MECHANIC Gender Identity Not on file Sexual Orientation Not on file Last Filed Vital Signs Vital Sign Reading Time Taken Comments Blood Pressure 102/71 10/03/2024 8:15 AM CDT Pulse 89 10/03/2024 8:15 AM CDT Temperature 36.6 C (97.9 F) 01/13/2023 12:31 PM TRANSPORTATION MECHANIC Respiratory Rate 20 01/13/2023 12:31 PM TRANSPORTATION MECHANIC Oxygen Saturation 97% 10/03/2024 8:15 AM CDT Inhaled Oxygen Concentration - - Weight 90.7 kg (200 lb) 10/03/2024 8:15 AM CDT Height 172.7 cm (5' 8 ) 10/03/2024 8:15 AM CDT Body Mass Index 30.41 10/03/2024 8:15 AM CDT Plan of Treatment Upcoming Encounters Date Type Department Care Team (Late st Contact Info) Description 08/13/2025 11:50 AM CDT Office Visit [facility] [place] [address] [place] [address] Emily Soni, SENIOR MANUFACTURING TECHNICIAN [address] [place] [address] Health Maintenance Due Date Last Done Comments HPV/Cotest (21-29) 2014 DTAP/TDAP/TD VACCINES (7 - T d or Tdap) 10/15/2018 10/15/2008, 10/22/1998, 12/10/1994, Additional history exists CERVICAL CANCER SCREENING 09/03/2023 HPV/Cotest (30-65) 09/03/2023 PAP SMEAR 09/03/2023 INFLUENZA VACCINE (#1) 2024 02/28/2018, 2016 COVID-19 Vaccine (3 2024-2 6 season) 2024 10/10/2020, 09/12/2020 HEPATITIS B VACCINES Completed 04/19/1994, 04/19/1994, 1993, Additional history exists HPV VACCINES Completed 09/17/2009, 11/29, 10/15/2008 Insurance [facility] BLUE ACCESS/TRUE BLUE PPO Care Teams Capital Equipment Specialist Relationship Specialty Start Date End Date Macy Saucedo MD [address] [place] [address] PCP - General Family Practice 09/06/18
--- OUTSIDE RECORDS SUMMARY | 2025-02-15 14:00 | XMS_ITS | Encounter Summary ---
Author Organization [facility] Address [address] [place] [address] Care Team Providers Care Product Development Scientist Name Role Phone Macy Saucedo MD Primary Care Provider Encounter Details Date Type Department Care Team (Late st Contact Info) Description 11/24/2002 Emergency [facility] Emergency Department [address] [place] [phone] Ruslan Chandler MD NO ADDRESS ON FILE ACUTE PHARYNGITIS (Primary Dx) Social History Tobacco Use Types Packs/Day Years Used Date Smoking Tobacco: Never Assessed Comments Unknown Sex and Gender Information Value Date Recorded Sex Assigned at Not on file Legal Sex Female 4:08 AM CONTAINER COORDINATOR Gender Identity Not on file Sexual Orientation Not on file documented as of this encounter Plan of Treatment Not on file documented as of this encounter Visit Diagnoses Diagnosis Acute pharyngitis- Primary documented in this encounter Care Teams Product Development Scientist Relationship Specialty Start Date End Date Mcay Saucedo MD [address] [place] [address] PCP - General Family Practice 09/06/18 documented as of this encounter
--- OUTSIDE RECORDS SUMMARY | 2025-02-15 14:00 | XMS_ITS | Clinical Summary ---
Author Organization [facility] Address [address] [place] [address] Phone Care Team Providers Care Talent Development Specialist Name Role Phone Macy Saucedo MD Primary Care Provider Allergies No known active allergies Medications sertraline (ZOLOFT) 100 mg tablet 200 mg. 1 9 Active amitriptyline (ELAVIL) 10 mg tablet Take 1 tablet by mouth 30 minutes prior to bedtime. 90 Tablet 1 0 Active tiZANidine (ZANAFLEX) 2 mg Tablet Take 1 Tablet (2 mg) by mouth every 6 hours as needed for Spasm. 120 Tablet 6 0 Active naproxen (NAPROSYN) 500 mg tablet TAKE 1 TABLET BY MOUTH EVERY 12 HOURS NEEDED FOR PAIN 60 Tablet 6 0 Active methylPREDNISol one (MEDROL DOSPACK) 4 mg Tablets, Dose Pack Take as directed 21 Tablet 0 Active gabapentin (Neurontin) 300 mg capsule Take 1 Capsule (300 mg) by mouth 4 times daily. 120 Capsule 11 0 Active fremanezumab-vf rm (AJOVY) 225 mg/1.5 mL Auto-Injector Inject 1.5 mL (225 mg) by subcutaneous injection every 30 days. 1.5 mL 11 06/08/202 1 Active Active Problems Problem Noted Date Diagnosed Date Chronic daily headache 11/21/2018 Bilateral occipital neuralgia 11/21/2018 Intractable chronic migraine without aura and without status migrainosus 09/25/2018 Cervicalgia 09/25/2018 Immunizations Immunization Administration Dates Next Due (ADACEL/BOOSTRIX)(10 [...] Never Smokeless Tobacco: Never Tobacco Cessation:Counseling Given: No Alcohol Use Standard Drinks/Week Comments Not Currently 0 (1 standard drink = 0.6 oz pur e alcohol) Comments No Sex and Gender Information Value Date Recorded Sex Assigned at Not on file Legal Sex Female 4:08 AM BUTTON CUTTING MACHINE OPERATOR Gender Identity Not on file Sexual Orientation Not on file Occupation Industry Job Start Date Job End Date Not on file Not on file Not on file Not on file Last Filed Vital Signs Vital Sign Reading Time Taken Comments Blood Pressure 129/75 10/09/2019 8:33 AM CDT Pulse 87 10/09/2019 8:33 AM CDT Temperature 35.9 C (96.6 F) 02/14/2019 9:32 AM BUTTON CUTTING MACHINE OPERATOR Respiratory Rate 16 10/09/2019 8:33 AM CDT Oxygen Saturation 100% 03/12/2019 11:14 AM BUTTON CUTTING MACHINE OPERATOR Inhaled Oxygen Concentration - - Weight 83.5 kg (184 lb) 10/09/2019 8:33 AM CDT Height 172.7 cm (5' 8 ) 10/09/2019 8:33 AM CDT Body Mass Index 27.98 10/09/2019 8:33 AM CDT Plan of Treatment Health Maintenance Due Date Last Done Comments HPV/Cotest (21-29) 2014 DTAP/TDAP/TD VACCINES (7 - T d or Tdap) 10/15/2018 10/15/2008, 10/22/1998, 12/10/1994, Additional history exists CERVICAL CANCER SCREENING 09/03/2023 HPV/Cotest (30-65) 09/03/2023 PAP SMEAR 09/03/2023 INFLUENZA VACCINE (#1) 2024 HEPATITIS B VACCINES Completed 04/19/1994, 1993, 1993 HPV VACCINES Completed 09/17/2009, 11/29, 10/15/[address] [place] [address] [employer] Care Teams Talent Development Specialist Relationship Specialty Start Date End Date Macy Saucedo MD [address] [place] [phone] PCP - General Family Practice 09/06/18
--- OUTSIDE RECORDS SUMMARY | 2025-02-15 14:00 | XMS_ITS | Data Portability ---
Author Organization [facility], [facility] Address [address] [facility] [address] [place] [address] Assessment No assessment recorded. Plan of Treatment Reminders Order Date Submit Date Provider Last Modified By Organization Details Last Modified Time Details Appointments None recorded. Lab None recorded. Referral None recorded. Procedures None recorded. Surgeries None recorded. Imaging None recorded. Medication Orders omeprazole 40 mg capsule,del ayed release 2023 024 [id number], [address], [address], 4 14:51:30 sucralfate 1 gram tablet 2023 024 [facility] #[id number], [address], [address], 4 14:52:01 Patient TargetsNo targets recorded. Patient InstructionsNo instructions recorded. Reason for Referral None Reported. Problems Name Problem SNOMED Code Status Onset Date Resolution Date Notes Provider Name and Address Organization Details Recorded Time Depressi ve disorder 45059425 Completed 201809/08/2018 Depressi on - Status is Inactive ; 09/09/19 12:08PM by Vidya Mccloud CMT, Annotati on/Adden dum; Promoted ; acuity set as *; Not Available [facility] 3 03:08:14 Gastroes ophageal reflux disease 200692896 Active 2023 Macy Saucedo MD [address] [place], [address] , [facility], Bj 14:48:33 Problem Notes None recorded. Procedures Surgical History Date Name Laterality Status Provider Name and Address Organization Details Recorded Time 07/17/19 21 colonoscopy completed [facility], Bj 02/06/2024 14:23:18 04/29/19 17 Cholecystectomy completed [facility], [facility] 02/06/2024 14:22:48 Imaging Results None recorded. Procedure Notes None recorded. Medical Equipment None Reported. Allergies No known drug allergies Medications Name Sig Start Date Stop Date Status Note LastModified by Organization Details LastModified Time BD Alcohol Swabs TO USE DIRECTED WITH INJECTIO NS 02/05 completed Not Available Not Available Not Available tizanidin e 2 mg tablet TAKE 1 TABLET BY MOUTH EVERY 6 HOURS NEEDED FOR MUSCLE SPASM active Not Available Not Available No t Available sucralfat e 1 gram tablet Take 1 tablet 4 times a day by oral route for 14 days. active Not Available Not Available No t Available topiramat e 25 mg tablet TAKE 1 TABLET BY MOUTH TWICE A DAY 02/05 completed Not Available Not Available Not Available omeprazol e 40 mg capsule,d elayed release TAKE 1 CAPSULE BY MOUTH EVERY DAY 2024 active Not Available Not Available Not Avai lable cephalexi n 500 mg capsule TAKE 1 CAPSULE BY MOUTH THREE TIMES DAILY FOR 7 DAYS 02/05 completed Not Available Not Available Not Available polyethyl asa glycol 3350 17 gram/dose oral powder MIX 17 GRAMS IN LIQUID AND TAKE BY MOUTH DAILY NEEDED FOR CONSTIPA TION 02/05 completed Not Available Not Available Not Available methylpre dnisolone 4 mg tablets in a dose pack TAKE 6 TABLETS ON DAY 1 DIRECTED ON PACKAGE AND DECREASE BY 1 TAB EACH DAY FOR A TOTAL OF 6 DAYS 02/05 completed Not Available Not Available Not Available topiramat e 50 mg tablet TAKE 1 TABLET BY MOUTH TWICE A DAY active Not Available Not Available No t Available nitrofura ntoin monohydra te/macroc rystals 100 mg capsule TAKE 1 CAPSULE BY MOUTH TWICE A DAY FOR 7 DAYS MUST ADMINIST ER WITH A MEAL/MARCO ANTONIO D 02/05 completed Not Available Not Available Not Available duloxetin e 60 mg capsule,d elayed release TAKE 1 CAPSULE BY MOUTH EVERY DAY active Not Available Not Available No t Available tizanidin e as needed 02/05 completed 0; Recorded 11/17/19 22 10:52AM by Ben Centeno, Office Visit; Not Available Not Available Not Available Vestura (28) 3 mg-0.02 mg tablet TAKE 1 TABLET BY MOUTH EVERY DAY 02/05 completed Not Available Not Available Not Available Ajovy Syringe 225 mg/1.5 mL subcutane ous 02/05 completed 0; Recorded 11/17/19 22 10:52AM by Ben Centeno, Office Visit; Not Available Not Available Not Available Emgality Pen 120 mg/mL subcutane ous pen injector ADMINIST ER 1 ML UNDER THE SKIN EVERY 30 DAYS . 02/05 completed Not Available Not Available Not Available Emgality 120 mg/mL subcutane ous syringe Inject by subcutan eous route. active Not Available Not Available No t Available Ubrelvy 100 mg tablet active Not Available Not Available Not Available Vitals Date Recorded Body height Body mass index (BMI) Body weight Body temperature Oxygen saturation Heart rate Systolic And Diastolic Provider Name and Address Organization Details Last Updated DateTime 4 172.72 cm 31 kg/m2 76153.8 4 g 97.8 [degF] 99 % 78 /min 118/72 mm[Hg] [facility] 4 14:18:51 Social History None recorded. Functional Status Question Answer Note LastModified by Organizat ion Details LastModified Time Do you use any illicit or recreational drugs? No Information not available 02/06/2024 What is your level of alcohol consumption? None [email or web address] Information not available 02/06/2024 Mental Status None recorded. Family History Nothing Reported Notes:Father: Hypertension: Denied Hypertension: Father Mother; Cecilia. Overweight. Paternal Grandmother: Hypertension: Denied Medical History Condition Response Coronary Artery Disease N Other N Gout N Kidney Stones N Blood Diseases N Hyperthyroidism N Breast Cancer N Blood Transfusion N Hypothyroidism N Depression N COPD N Lung Disease N Defects or Inherited Disease N Developmental or Behavioral Disorders N Breast Problem N Difficulty Swallowing N Anesthesia Complications N Anxiety Disorder N Meniere's disease N Muscle, Joint, or Bone Problems N Vision or Eye Problems N Arthritis N Polyps N Infertility N Cancer N Varicosities N Stroke N Endometriosis N Bladder or Kidney Problems N High Cholesterol N Liver Disease N Headaches Y Fibromyalgia N Kidney Disease N Allergies/Hayfever N Heart Problems N Ear or Hearing Problems N Hospitalizations N Thyroid Problems N GI Problems N ADD/ADHD N Skin Problems N Eating Disorder N Anemia N Constipation N Mental Illness N Ovarian Cancer N Diabetes N Bedwetting N Seizures/Epilepsy N Tuberculosis N Eczema N Diverticulitis N Abuse/Domestic Violence N Asthma N Reflux/GERD N Hepatitis N Heart Disease N Pulmonary Embolism N Chronic Ear Infections N Pre-Eclampsia N Hypertension N Chicken Pox N Autism Spectrum Disorder (ASD) N Osteoporosis N Thrombophilias N Gynecological HistoryNo gynecological history recorded. Obstetrics History GPAL:G 0 P 0 0 0 0 Immunizations Vaccine Type Date Status Note Provider Nam e and Address Organization Details Recorded Time Influenza, split virus, trivalent, preservative 7 completed Not Available [facility] 09/25/2022 02:51:24 Influenza, split virus, trivalent, preservative 9 completed Not Available [facility] 09/25/2022 02:51:24 Past Encounters Encounter ID Performer Location Encounter Start Date Encounter Closed Date Diagnosis/Indication Diagnosis SNOMED-CT Code Diagnosis ICD10 Code Diagnosis IMO Codes Diagnosis Note [id number] Macy Saucedo MD [facility] [address] [place] [address] 02/06/2024 14:13:37 02/14/2024 07:56:28 Abdominal pain 80013805 R10.9 I suspect this is secondary to her GERD. Hopefully this will resolve being back on her omeprazole with the addition of sucralfate . Gastroesop hageal reflux disease 282643187 K21.9 Return to office in 2 to 4 weeks if not improved Health Concerns Section Related Observation LastModified by Organization Detai ls LastModified Time None Recorded Concern Status LastModified by Organization Details LastModified Time None Recorded Advance Directives Directive None Recorded Payers Insurance Date Sequence Insurance Name Policy Number Policy Tineo Covered Member ID Tinoe Member ID Guarantor Name 02/14/2024 1 [place] [id number] Sheila Daniels [id number] Sheila Daniels Notes Date Note Type Note Provider Name and Address Organization Details Recorded Time 024 text/ht ml Abdominal PainReported by PatientAbdominal PainFor quality, patient reportscrampingandstabbing. For associated symptoms, patient reportsnauseaandconstipationbut reportsno fever,no chills,no shortness of breath, andno vomiting. For location, patient reportsepigastric. I have been having abdominal pain, chest pain and back pain. It hurts at the top of my stomach and pushes up into my chest. If I sit up it okay, it's tolerable but if I lay down it's worse. I was on omeprazole but I have been out, as I ran out. I am taking fiber gummies for the constipation. I went to walk in and they gave me an antibiotic, I then went to the ER and they gave me 2 injections and a antibiotic to take home. I thought I had a kidney infection and that's why I went, I thought I had a kidney infection because I was having cramping and my urine was cloudy. I had a bowel movement 2 days ago, it was soft. I do not go to the bathroom very often. I am currently on the antibiotic that the ER gave me. Macy Saucedo MD [address] [place] [address], [phone], [facility], Bj 02/13/2024 13:22:41 OBGyn Episode No OBEpisode recorded.
--- NOTE | 2025-02-15 14:40 | CT_ITS ---
WS: [id number] CT scan of the abdomen and pelvis without Oral and with IV contrast. Additional two-dimensional coronal and sagittal reconstruction was performed. 02/15/2025 Clinical Data: abdominal pain, PROPERTY ADMINISTRATOR surgery 1 mo ago Comparison: None. DLP: 864.[address] scans at [facility] use at least one of these dose optimization techniques: automated exposure control; mA and/or kV adjustment per patient size (includes targeted exams where dose is matched to clinical indication); or iterative reconstruction. Findings: The lower lungs show no nodules, masses or effusions. The liver, spleen, adrenal glands and pancreas are normal. The gallbladder is absent. The kidneys show equal bilateral contrast excretion with no cyst or masses. No hydronephrosis or renal calculi are seen. The abdominal aorta is normal in size. No appendicitis or diverticulitis is seen. The stomach and small bowel are unremarkable. There is a large amount of fecal material in the colon. No abscess, adenopathy, ascites, mass, obstruction or free air is seen. There is a small fat-containing umbilical hernia The bladder is unremarkable. No inguinal hernia is seen. The bones of the lower thorax, lumbar spine, pelvis, and hips are normal. The uterus is absent. CT/CT abdomen pelvis w con* [id number] Impression: Negative CT scan of the abdomen and pelvis.
--- NOTE | 2025-02-15 14:41 | ED_ITS ---
HPI - Abdominal Pain 2 General: Chief Complaint: Abdominal Pain Stated Complaint: Upper ABD Pain Nausa Time Seen by Provider: 02/15/25 14:06 Source: patient and family Mode of arrival: ambulatory Limitations: no limitations History of Present Illness: Patient is a 29-year-old female presents to ED today with complaint of abdominal pain. Patient states she underwent STATISTICAL DEVELOPER surgery approximately a month ago including a hysterectomy and bilateral salpingectomy. Patient states she has had pain since the surgery. She has been following up with STATISTICAL DEVELOPER as scheduled. She states she did get cleared to return to work approximately 10 days ago. Patient states she sits at a desk and this seems to exacerbate her pain. She does have pain to her lower pelvis but mainly today is complaining about left upper quadrant pain. She has not had any episodes of vomiting. She reports normal bowel movements. No fevers. MD elicited complaint: abdominal pain Pertinent past history: none Onset (ago): week(s) Pain Consistency: constant Location: LUQ and Pelvis Severity: moderate Radiation: none Migration to: no migration Exacerbating factors: nothing Relieving factors: nothing Associated Symptoms: Denies change in bowel habits, chills, dysuria, fever(s), hematochezia, melena, nausea and vomiting Related Data Home Medications ?Medication ?Instructions ?Recorded ?Confirmed tizanidine 2 mg capsule 2 mg PO TID PRN Pain 0 01/30/25 omeprazole 40 mg capsule,delayed 40 mg PO DAILY 01/30/25 release duloxetine 40 mg capsule,delayed 40 mg PO DAILY 01/30/25 release sprinkle topiramate 25 mg tablet (Topamax) 25 mg PO BID 2 01/30/25 ubrogepant 100 mg tablet (Ubrelvy) 100 mg PO ONCE PRN Migraine 10/20/23 01/30/25 Headache fremanezumab-vfrm 225 mg/1.5 mL 225 mg SUBCUT Q30D 01/30/25 subcutaneous auto-injector (Ajovy) Previous Rx's ?Medication ?Instructions ?Recorded polyethylene glycol 3350 17 gram 17 g PO DAILY PRN con stipation #14 02/02/24 oral powder packet (Miralax) ea Allergies Allergy/AdvReac Type Severity Reaction Status Date / Time No Known Allergies Allergy Verified 01/30/25 10:57 Review of Systems 2 Const: Denies: fever(s), chills, body aches, fatigue or malaise Card: Denies: chest pain Resp: Denies: dyspnea, productive cough, non-productive cough, pain on inspiration or chest congestion GI: Reports: abdominal pain; Denies: nausea, vomiting, change in bowel habits, hematochezia or melena : Denies: flank pain, difficulty voiding, dysuria, urinary frequency, urinary urgency or urinary hesitancy Musc: Denies: neck pain, back pain, extremity pain, extremity swelling, joint pain, joint swelling or joint redness Skin/Breast: Denies: rash Neuro: Denies: headache(s), numbness in extremities, weakness in extremities or sensory changes PFSH ED 2 PFSH: Medical History GERD (gastroesophageal reflux disease) Gastritis Bleeding per rectum Fibromyalgia Chronic pain Surgical History History of laparoscopic-assisted vaginal hysterectomy (~01/15/25) Total laparoscopic hysterectomy with bilateral salpingectomy performed by Dr. Luna at [facility] for menorrhagia. Normal uterine, ovarian and pelvic anatomy. Benign pathology. History of cholecystectomy Family History Mother CAD (coronary artery disease) Hypertension Heart disease Other Cancer Diabetes Denies family history of Colon cancer Ovarian cancer Hypercholesteremia Breast cancer Uterine cancer Thyroid disease Stroke Social History Smoking and tobacco/nicotine status: former use of tobacco/nicotine Substance/Drug Use: never Physical Exam 2 Const: COMMON NORMALS: no acute distress, average body habitus, patient oriented x3, no limitations, healthy appearing, alert and well nourished G ENERAL APPEARANCE: cooperative ORIENTATION/CONSCIOUSNESS: Yes awake, Yes oriented to person, Yes oriented to place and Yes oriented to time Resp: COMMON NORMALS: normal respiratory effort and clear to auscultation bilaterally AUSCULTATION: clear to auscultation bilaterally Cardio: COMMON NORMALS: regular rate and regular rhythm RATE: regular rate RHYTHM: regular rhythm GI: COMMON NORMALS: Normal to inspection, nondistended, normoactive bowel sounds present, Soft to palpation, No hepatosplenomegaly present and no masses INSPECTION: Yes normal to inspection AUSCULTATION: Yes normoactive bowel sounds PALPATION: Yes Soft to palpation, Yes Tenderness to palpation present (GI) (mainly to LUQ, mild pain across pelvis) Details: LUQ, No Guarding due to palpation present (GI), No Rigid due to palpation and Yes No hepatosplenomegaly present : COMMON NORMALS: Yes no CVA tenderness BLADDER/KIDNEY EXAM: Yes no CVA tenderness Back/Pelvis: COMMON NORMALS: no CVA tenderness Neuro: COMMON NORMALS: patient oriented x3 SENSORIUM/ORIENTATION: Yes alert, Yes oriented to person, Yes oriented to place and Yes oriented to time Course 2 Vital Signs: Vital signs: Vital Signs Temperature 97.5 F L 02/15/25 13:59 Pulse Rate 82 02/15/25 14:32 Respiratory Rate 18 02/15/25 14:32 Blood Pressure 105/69 02/15/25 16:00 Pulse Oximetry 100 02/15/25 16:00 Oxygen Delivery Me thod Room Air 02/15/25 14:32 MDM - Abdominal Pain Medical Decision Making Patient here for abdominal pain, mainly to her left upper quadrant currently. She has had discomfort since her STATISTICAL DEVELOPER surgery approximately a month ago. Her vital signs are stable. Blood work overall is unremarkable. Normal white count. Her chemistry is unremarkable. UA is clear. CT scan showing no acute findings. She did have a large amount of fecal material throughout colon. We did discuss trialing some MiraLAX/Colace/Senokot to see if this helps. She can otherwise follow-up with primary care and/or STAT[facility] DEVELOPER. Medical Records I reviewed the patient's medical records. Lab Data I reviewed the patient's lab results. 02/15/25 14:33 02/15/25 14:33 Labs/Radiology: Radiology Impressions Abdomen/Pelvis CT 02/15/25 14:40 Impression: Negative CT scan of the abdomen and pelvis. Laboratory Results WBC 7.55 10^3/uL (3.29-11.43) 02/15/25 14:33 RBC 4.65 10^6/uL (3.85-5.65) 02/15/25 14:33 Hgb 13.40 g/dL (11.27-16.99) 02/15/25 14:33 Hct 40.8 % (36-47) 02/15/25 14:33 MCV 87.7 fl (85-98) 02/15/25 14:33 MCH 28.8 pg (27-33) 02/15/25 14:33 MCHC 32.8 g/dL (30-55) 02/15/25 14:33 RDW 12.7 % (12.1-15.1) 02/15/25 14:33 Plt Count 274 10^3/cmm (157-399) 02/15/25 14:33 MPV 9.7 fL (7.4-10.4) 02/15/25 14:33 Neut % (Auto) 66.9 % 02/15/25 14:33 Lymph % (Auto) 25.0 % 02/15/25 14:33 [place] % (Auto) 6.1 % 02/15/25 14:33 Eos % (Auto) 1.3 % 02/15/25 14:33 Baso % (Auto) 0.4 % 02/15/25 14:33 Neut # (Auto) 5.05 10^3/uL (1.8-7.7) 02/15/25 14:33 Lymph # (Auto) 1.9 10^3/uL (0.8-4.8) 02/15/25 14:33 [place] # (Auto) 0.5 10^3/uL (0.2-0.9) 02/15/25 14:33 Eos # (Auto) 0.1 10^3/uL (0.0-0.8) 02/15/25 14:33 Baso # (Auto) 0.0 10^3/uL (0.0-0.1) 02/15/25 14:33 Nucleated RBC % (auto) 0 % 02/15/25 14:33 Nucleated RBCs # 0.0 /100WBC 02/15/25 14:33 Sodium 139 mmol/L (136-145) 02/15/25 14:33 Potassium 3.8 mmol/L (3.5-5.1) 02/15/25 14:33 Chloride 106 mmol/L (98-107) 02/15/25 14:33 Carbon Dioxide 22 mmol/L (22-29) 02/15/25 14:33 Anion Gap 14.8 (5-19) 02/15/25 14:33 BUN 12 mg/dL (6-20) 02/15/25 14:33 Creatinine 0.8 mg/dL (0.5-0.9) 02/15/25 14:33 GFR Calculation 83.7 mL/min (90-130) L 02/15/25 14:33 Glucose 85 mg/dL (65-115) 02/15/25 14:33 Calculated Osmolality 287 mOsm/kg (285-295) 02/15/25 14:33 Calcium 9.2 mg/dL (8.5-10.5) 02/15/25 14:33 Total Bilirubin 0.2 mg/dL (0.15-1.2) 02/15/25 14:33 AST 22 U/L (0-32) 02/15/25 14:33 ALT 24 U/L (0-33) 02/15/25 14:33 Alkaline Phosphatase 76 U/L (35-105) 02/15/25 14:33 Total Protein 6.6 g/dL (6.6-8.7) 02/15/25 14:33 Albumin 4.3 g/dL (3.5-5.2) 02/15/25 14:33 Globulin 2.3 g/dL (1.3-4.6) 02/15/25 14:33 Lipase 33 U/L (13-60) 02/15/25 14:33 Urine Color Yellow (Yellow) 02/15/25 15:23 Urine Appearance Clear (CLEAR) 02/15/25 15:23 Urine pH 6.5 (5-7) 02/15/25 15:23 Ur Specific [place] 1.033 (1.005-1.030) H 02/15/25 15:23 Urine Protein Negative (Negative) 02/15/25 15:23 Urine Glucose (UA) Negative (Normal) 02/15/25 15:23 Urine Ketones Negative (Negative) 02/15/25 15:23 Urine Blood Negative (Negative) 02/15/25 15:23 Urine Nitrate Negative (Negative) 02/15/25 15:23 Urine Bilirubin Negative (Negative) 02/15/25 15:23 Urine Urobilinogen 0.2 mg/dL (Negative) 02/15/25 15:23 Ur Leukocyte Esterase Negative (Negative) 12/19/25 15:23 Urine RBC 0-2 /hpf (0-2) 02/15/25 15:23 Urine WBC 0-5 /hpf (0-5) 02/15/25 15:23 Ur Squamous Epith Cells 0-5 /hpf (0-5) 02/15/25 15:23 Amorphous Sediment Not Reportable 02/15/25 15:23 Urine Bacteria None seen /hpf (NONE) 02/15/25 15:23 Hyaline Casts 0-4 /lpf H 02/15/25 15:23 All radiology interpretation(s) finalized by discharge Discharge Plan Discharge Patient Disposition: Home Clinical Impression: Abdominal pain Condition: Stable Prescriptions: No Action omeprazole 40 mg capsule,delayed release(DR/EC) 40 mg PO DAILY tizanidine 2 mg capsule 2 mg PO TID PRN (Reason: Pain) topiramate [Topamax] 25 mg tablet 25 mg PO BID duloxetine 40 mg capsule, delayed rel sprinkle 40 mg PO DAILY Ajovy Autoinjector 225 mg/1.5 mL auto-injector 225 mg SUBCUT Q30D Ubrelvy 100 mg tablet 100 mg PO ONCE PRN (Reason: Migraine Headache) polyethylene glycol 3350 [Miralax] 17 gram powder in packet 17 g PO DAILY PRN (Reason: constipation) Qty: 14 0RF Discharge Orders: Discharge ED (Routine); Ordered 02/15/25 Ordered By: Delfina Zuniga Referrals: Macy Saucedo MD [Primary Care Provider, Family Practice] Patient Instructions: Abdominal Pain (ED), Patient Portal & Krzysztof Instructions Activity Restrictions/Additional Instructions: As we discussed, your blood work and urine were unremarkable. CT imaging did not show any obvious etiology for your discomfort. They did see a large amount of fecal material in your colon. We discussed [id number] medications such as MiraLAX, Colace, Senokot to help with relief of constipation. I would like you to follow-up with primary care next week. Return ED precautions include worsening or severe abdominal pain, fevers, repetitive episodes of vomiting, generally feeling worse or unwell, or any other concerns you may have. Stand Alone Forms: Work/School Release Print Language: Armenian Coding Level of Care Code ED [employer] Operator for Jad Dahl
[2025-02-15 14:42] LABS: Hematocrit 40.8 % (36-47); Hemoglobin 13.40 g/dL (11.27-16.99); Mean Corpuscular HGB Conc 32.8 g/dL (30-55); Mean Corpuscular Hemoglobin 28.8 pg (27-33); Mean Corpuscular Volume 87.7 fl (85-98); Nucleated Red Blood Cells % 0 %; Platelet Count 274 10^3/cmm (157-399); Red Blood Count 4.65 10^6/uL (3.85-5.65); White Blood Count 7.55 10^3/uL (3.29-11.43)
[2025-02-15 14:59] LABS: Lipase 33 U/L (13-60)
[2025-02-15 15:00] LABS: Alanine Aminotransferase 24 U/L (0-33); Albumin Level 4.3 g/dL (3.5-5.2); Alkaline Phosphatase 76 U/L (35-105); Anion Gap 14.8 (5-19); Aspartate Amino Transferase 22 U/L (0-32); Blood Urea Nitrogen 12 mg/dL (6-20); Calcium 9.2 mg/dL (8.5-10.5); Carbon Dioxide 22 mmol/L (22-29); Chloride 106 mmol/L (98-107); Globulin 2.3 g/dL (1.3-4.6); Glucose 85 mg/dL (65-115); Osmolality Calculated 287 mOsm/kg (285-295); Potassium 3.8 mmol/L (3.5-5.1); Sodium 139 mmol/L (136-145); Total Protein 6.6 g/dL (6.6-8.7)
[2025-02-15] MEDS: iohexol 350 mg/mL 500 mL Btl (per mL) IV (15:11)
[2025-02-15 15:32] LABS: Glucose Urine UA Negative (Normal); Nitrate Urine Negative (Negative)
[2025-02-15 15:34] LABS: Add Urine Microscopic? YES
[2025-02-15 15:36] LABS: Specific Gravity, Urine 1.033 (1.005-1.030)
== END 2025-02-15 16:29 | disposition home or self-care (01) ==
PROVIDERS: Emergency Provider Physician Assistant; PCP Family Medicine
DX: R10.12 Left upper quadrant pain (principal); Z87.891 Personal history of nicotine dependence
CPT/HCPCS: 74177; 80053; 81001; 83690; 85025; 99285